=== PATIENT | female | born 1995 ===

== ENCOUNTER 2016-09-26 22:50 | Emergency (ER) | payer OTHER ==
[2016-09-26 22:56] VITALS: BMI 54.9
[2016-09-26 23:01] VITALS: BP 118/82; PULSE 91; RESP 18; TEMP 99.5; O2SAT 99
--- NOTE | 2016-09-27 00:04 | ED PDOC ---
Arrival/HPI - General Chief Complaint: Weakness/Neurological Deficit Time Seen by Provider: 09/26/16 23:19 Historian: Patient - History of Present Illness Narrative History of Present Illness (Text): 09/26/16 23:58 Patient with past medical history of anemia, asthma, hypothyroidism and palpitation reports having 3 episodes of feeling like she was going to pass out today, states that her symptoms are associated with feelings of agitation, burning sensation to her head, which causes her to hyperventilate. Patient states that she has had similar episodes intermittently for the past week. She adds that she recently saw her back hanger and snuff maker this past week and had bloodwork from both doctors which were completely normal, she states that she was told that she was not anemic, that her hemoglobin was normal, was told that her thyroid hormones are within normal limits, and was advised that she is not diabetic as well. Patient states that she has a follow-up appointment with the back hanger tomorrow and that her back hanger plans to put her on a Holter monitor. She further states that because she suffers from chronic migraines that she has been following up with a neurologist who ordered an outpatient MRI of her brain one month ago which was negative. She also adds that 3 days and today she has an appointment with her neurologist to get an EEG done. Reports (-) worsening of symptoms with movement of head. Otherwise: (+) decrease in appetite, (-) lightheadedness, (-) dizziness, (-) trauma, (-) acute headache, (-) tinnitus, (-) hearing loss, (-) chest pain, (-) dyspnea, (-) fever , (-) vomiting, (-) diarrhea, (-) syncope, (-) GI bleeding. Of note, patient states that she currently has a sore throat and recently had nasal congestion and runny nose. PMD Lavelle Cardio: Gopi Endo: Tacho Neuro: Catrachita Past Medical History - Provider Review Nursing Documentation Reviewed: Yes - Past History Past History: No Previous - Infectious Disease Hx of Infectious Diseases: None - Tetanus Immunization Tetanus Immunization: Unknown - Past Medical History Past Medical History: No Previous - Cardiac Hx Cardiac Disorders: No Hx Hypertension: No - Pulmonary Hx Asthma: Yes - Neurological Hx Neurological Disorder: No Hx Seizures: No - HEENT Hx HEENT Disorder: No - Renal Hx Renal Disorder: No - Endocrine/Metabolic Hx Hyperthyroidism: Yes - Hematological/Oncological Hx Anemia: Yes - Integumentary Hx Dermatological Disorder: No - Musculoskeletal/Rheumatological Hx Musculoskeletal Disorders: No - Gastrointestinal Hx Gastrointestinal Disorders: No - Genitourinary/Gynecological Hx Sexually Transmitted Diseases: No Other/Comment: POLYCYSTIC OVARY - Psychiatric Hx Depression: No Hx Post Traumatic Stress Disorder: No Hx Schizophrenia: No Hx Substance Use: Yes (CANNABIS) Other/Comment: ODD - Past Surgical History Past Surgical History: No Previous - Anesthesia Hx Anesthesia: No Hx Anesthesia Reactions: No Hx Malignant Hyperthermia: No - Suicidal Assessment Feels Threatened In Home Enviroment: No Family/Social History - Physician Review Nursing Documentation Reviewed: Yes Family/Social History: No Known Family HX Smoking Status: Light Smoker < 10 Cigarettes Daily Hx Alcohol Use: Yes Hx Substance Use: Yes (CANNABIS) Hx Substance Use Treatment: No Allergies/Home Meds Allergies/Adverse Reactions: Allergies No Known Allergies Allergy (Verified 02/20/16 10:51) Review of Systems - Review of Systems Constitutional: Normal. absent: Fatigue, Weight Change, Fevers ENT: Normal, Sore Throat, Sinus Congestion (for 1 week). absent: Hearing Changes, Tinnitus, TMJ Pain Respiratory: Normal. absent: SOB, Cough, Sputum, Wheezing Cardiovascular: Normal. absent: Chest Pain, Palpitations, Edema Gastrointestinal: Normal. absent: Abdominal Pain, Stool Changes, Constipation Musculoskeletal: Normal. absent: Arthralgias, Back Pain, Neck Pain Skin: Normal. absent: Rash, Pruritis, Skin Lesions Neurological: Normal, Headache (migraine headaches). absent: Dizziness, Focal Weakness Endocrine: Normal. absent: Diaphoresis, Polyuria, Polydipsia Physical Exam - Physical Exam Narrative Physical Exam (Text): 09/27/16 00:05 GENERAL APPEARANCE: Patient is awake, alert, oriented x 3, in no acute distress. SKIN: Warm, dry; (-) cyanosis. HEAD: (-) scalp swelling or tenderness. EYES: (-) conjunctival pallor. ENMT: TMs normal. Mucous membranes moist. Pharynx : (+) erythema, (+) exudate. Airway patent. NECK: (-) tenderness, (-) stiffness, (-) lymphadenopathy. Carotids: (-) bruit. CHEST AND RESPIRATORY: (-) rales, (-) rhonchi, (-) wheezes; breath sounds equal bilaterally. HEART AND CARDIOVASCULAR: (-) irregularity; (-) murmur, (-) gallop. ABDOMEN AND GI: Soft; (-) distention, (-) tenderness, (-) rebound, (-) guarding , (-) palpable masses, (-) flank tenderness. EXTREMITIES: (-) deformity; (-) edema. Distal pulses: present. NEURO AND PSYCH: Mental status as above. information lead: (-) nystagmus; Pupils equal & reactive, EOMI, (-) facial asymmetry; (-) dysarthria; tongue and uvula midline. Strength and DTRs symmetric. Gait: normal. Vital Signs Temp Pulse Resp BP Pulse Ox 09/26/16 22:55 99.5 F 91 H 18 118/82 99 Finger Stick Blood Glucose: 87 Medical Decision Making ED Course and Treatment: 09/27/16 00:05 20 yo F past medical history of asthma, anemia, hypothyroidism and migraine headaches presents with 3 episodes of sensation of nearly passing out today, has had similar episodes for the past week. Physical exam is normal otherwise. Symptoms may be related to hypoglycemia since the patient reports a history of decrease in appetite. However, patient has had an extensive workup with her back hanger, snuff maker and neurologist which so far are yielding normal testing. EKG: SR at 83 bpm, (-) acute ST changes, as read by PA. Urine hcg (-) FS 87 Considering that the patient has currently undergoing extensive workup by her back hanger, snuff maker and neurologist, patient was advised that she needs to follow up with her doctors for further evaluation. Patient instructed on the importance of eating on time and with a balanced diet. Patient states she fully agrees with and understands discharge instructions. States that she agrees with the plan and disposition. Verbalized and repeated discharge instructions and plan. I have given the patient opportunity to ask any additional questions. Follow up with primary care physician, back hanger, snuff maker and neurologist in 2 days without fail. Return to the emergency room at any time for any new or worsening symptoms. - PA / HEALTH UNIT CLERK / Resident Statement /DO has reviewed & agrees with the documentation as recorded. Disposition/Present on Arrival - Present on Arrival Any Indicators Present on Arrival: No History of DVT/PE: No History of Uncontrolled Diabetes: No Urinary Catheter: No History of Decub. Ulcer: No History Surgical Site Infection Following: None - Disposition Have Diagnosis and Disposition been Completed?: Yes Diagnosis: Near syncope, Pharyngitis Disposition: HOME/ ROUTINE Disposition Time: 00:09 Patient Plan: Discharge Condition: STABLE Discharge Instructions (ExitCare): Pharyngitis (ED), Near Syncope (ED) Print Language: CYPRIOT Additional Instructions: Thank you for letting us take care of you today. You were treated for near- syncope, pharyngitis. The emergency medical care you received today was directed at your acute symptoms. If you were prescribed any medication, please fill it and take as directed. It may take several days for your symptoms to resolve. Return to the Emergency Department if your symptoms worsen, do not improve, or if you have any other problems. Please contact your doctors in 2 days for re-evaluation and follow up. Bring any paperwork you were given at discharge with you along with any medications you are taking to your follow up visit. Our treatment cannot replace ongoing medical care by a primary care provider (PCP) outside of the emergency department. Thank you for allowing the [facility] team to be part of your care today. Prescriptions: Penicillin VK [Pen-Vee K] 500 mg PO QID #40 tab Forms: WORK NOTE, SCHOOL NOTE
--- NOTE | 2016-09-27 12:53 | CARD ---
APPROVED REPORT EKG Measurement Heart [id number] [place] [id number] [id number] <Conclusion> Sinus rhythm with marked sinus arrhythmia Otherwise normal ECG
== END 2016-09-27 00:40 | disposition home or self-care (01) ==
LOC: ED 22:50
DX: R55 Syncope and collapse (principal); J02.9 Acute pharyngitis, unspecified; Z72.0 Tobacco use

== ENCOUNTER 2016-11-22 14:30 | Emergency (ER) | payer OTHER ==
[2016-11-22 14:30] VITALS: BMI 54.9
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
[2016-11-22 14:59] VITALS: RESP 18
[2016-11-22 15:21] LABS: ADD MANUAL DIFF? NO
[2016-11-22 15:38] LABS: BASO # 0.04 K/mm3 (0.0-2.0); BASO % 0.4 % (0.0-3.0); EOS # 0.2 (0.0-0.7); EOS % 1.8 % (1.5-5.0); GRAN # 7.82 (1.4-6.5); GRAN % 69.1 % (50.0-68.0); HEMATOCRIT 34.8 % (36.0-48.0); LYMPH # 2.6 (1.2-3.4); MEAN CELL VOLUME 82.3 fL (80.0-105.0); MEAN CORPUSCULAR HEMOGLOBIN 26.5 pg (25.0-35.0); MEAN CORPUSCULAR HGB CONC 32.2 g/dl (31.0-37.0); MEAN PLATELET VOLUME 10.1 fl (7.0-11.0); MONO # 0.7 (0.1-0.6); MONO % 5.7 % (1.0-6.0); PLATELET COUNT 353 10^3/uL (120.0-450.0); RED CELL DISTRIBUTION WIDTH 14.1 % (11.5-14.5); WHITE BLOOD COUNT 11.3 10^3/ul (4.5-11.0)
[2016-11-22 15:41] LABS: ALB/GLOB RATIO 1.1 (1.1-1.8); ALKALINE PHOSPHATASE 80 U/L (38-133); ALT/SGPT 27 U/L (7-56); AST/SGOT 23 U/L (15-39); BILIRUBIN,TOTAL 0.5 mg/dL (0.2-1.3); BLOOD UREA NITROGEN 13 mg/dL (7-21); CALCIUM 9.5 mg/dL (8.4-10.5); CARBON DIOXIDE 26 mmol/L (21-33); CHLORIDE 103 mmol/L (98-107); GFR AFRICAN-AMERICAN > 60; GLUCOSE,RANDOM 99 mg/dL (70-110); POTASSIUM 3.8 mmol/L (3.6-5.0); SODIUM 137 mmol/L (132-148); TOTAL PROTEIN 7.7 g/dL (5.8-8.3)
[2016-11-22 15:54] LABS: URINE BILIRUBIN NEGATIVE (NEGATIVE); URINE BLOOD NEGATIVE (NEGATIVE); URINE GLUCOSE (UA) NEGATIVE (NEGATIVE); URINE KETONE NEGATIVE (NEGATIVE); URINE LEUKOCYTE ESTERASE NEGATIVE Leu/uL (NEGATIVE); URINE PROTEIN NEGATIVE mg/dL (<30 mg/dL); URINE UROBILINOGEN 0.2 E.U./dL (<1 E.U./dL)
[2016-11-22 15:57] LABS: URINE APPEARANCE CLEAR (CLEAR); URINE COLOR YELLOW (YELLOW)
--- NOTE | 2016-11-22 16:21 | RAD ---
HISTORY: medical clearance COMPARISON: 08/27/2014 FINDINGS: LUNGS: The lungs are well inflated and clear. PLEURA: No significant pleural effusion identified, no pneumothorax apparent. CARDIOVASCULAR: Normal. OSSEOUS STRUCTURES: No significant abnormalities. VISUALIZED UPPER ABDOMEN: Normal. OTHER FINDINGS: None. IMPRESSION: No active pulmonary disease.
[2016-11-22 16:34] VITALS: BP 120/66; PULSE 78; TEMP 98.1; O2SAT 99
--- NOTE | 2016-11-24 00:04 | CARD ---
APPROVED REPORT EKG Measurement Heart [id number] VA [id number] <Conclusion> Normal sinus rhythm with sinus arrhythmia Normal ECG
== END 2016-11-22 16:36 | disposition home or self-care (01) ==
LOC: ED 14:30
DX: F31.9 Bipolar disorder, unspecified (principal); F12.10 Cannabis abuse, uncomplicated

== ENCOUNTER 2016-12-02 09:18 | Emergency (ER) | payer OTHER ==
[2016-12-02 09:28] VITALS: BMI 52.7
--- NOTE | 2016-12-02 09:36 | ED PDOC ---
Arrival/HPI - General Chief Complaint: Back Pain Time Seen by Provider: 12/02/16 09:29 Historian: Patient - History of Present Illness Narrative History of Present Illness (Text): 12/02/16 09:29 21 y/o female, pmh including chronic sciatica, nkda, c/o lt. lower back pain radiating to the left thigh x 1 day with no fall or trauma. Aching pain, aggravated by movement, started after long day walking, no numbness or tingling , no urinary symptoms, no urinary or bowel incontinence or retention, no other medical or psychological complaints. Past Medical History - Provider Review Nursing Documentation Reviewed: Yes - Past History Past History: No Previous - Infectious Disease Hx of Infectious Diseases: None - Tetanus Immunization Tetanus Immunization: Unknown - Past Medical History Past Medical History: No Previous - Cardiac Hx Cardiac Disorders: No Hx Hypertension: No - Pulmonary Hx Asthma: Yes - Neurological Hx Neurological Disorder: No Hx Seizures: No - HEENT Hx HEENT Disorder: No - Renal Hx Renal Disorder: No - Endocrine/Metabolic Hx Hyperthyroidism: Yes - Hematological/Oncological Hx Anemia: Yes - Integumentary Hx Dermatological Disorder: No - Musculoskeletal/Rheumatological Hx Arthritis: Yes - Gastrointestinal Hx Gastrointestinal Disorders: No - Genitourinary/Gynecological Hx Sexually Transmitted Diseases: No Other/Comment: POLYCYSTIC OVARY - Psychiatric Hx Depression: No Hx Post Traumatic Stress Disorder: No Hx Schizophrenia: No Hx Substance Use: Yes (CANNABIS) Other/Comment: ODD - Past Surgical History Past Surgical History: No Previous - Anesthesia Hx Anesthesia: No Hx Anesthesia Reactions: No Hx Malignant Hyperthermia: No - Suicidal Assessment Feels Threatened In Home Enviroment: No Family/Social History - Physician Review Nursing Documentation Reviewed: Yes Family/Social History: Unknown Family HX Smoking Status: Light Smoker < 10 Cigarettes Daily Hx Alcohol Use: Yes Frequency of alcohol use: Socially Hx Substance Use: Yes (CANNABIS) Hx Substance Use Treatment: No Allergies/Home Meds Allergies/Adverse Reactions: Allergies No Known Allergies Allergy (Verified 12/02/16 09:28) Home Medications: Home Meds Medication Instructions Recorded Confirmed Albuterol HFA [Ventolin HFA 90 2 puff NEB Q4 PRN 12/02/16 12/02/16 mcg/actuation (8 g)] Omeprazole [Omeprazole] 40 mg PO DAILY 12/02/16 12/02/16 Review of Systems - Review of Systems Constitutional: absent: Fatigue, Fevers Eyes: absent: Vision Changes ENT: absent: Hearing Changes Respiratory: absent: SOB, Cough Cardiovascular: absent: Chest Pain Gastrointestinal: absent: Abdominal Pain, Diarrhea, Nausea, Vomiting Musculoskeletal: Back Pain, Myalgias. absent: Arthralgias, Neck Pain, Joint Swelling Neurological: absent: Headache, Dizziness, Focal Weakness, Gait Changes Psychiatric: absent: Anxiety, Depression, Suicidal Ideation Physical Exam Vital Signs Reviewed: Yes Vital Signs Temp Pulse Resp BP Pulse Ox 12/02/16 09:18 98.7 F 79 18 123/62 100 Temperature: Afebrile Blood Pressure: Normal Pulse: Regular Respiratory Rate: Normal Appearance: Positive for: Well-Appearing, Non-Toxic Pain Distress: Severe Mental Status: Positive for: Alert and Oriented X 3 - Systems Exam Head: Present: Atraumatic, Normocephalic Pupils: Present: PERRL Extroacular Muscles: Present: EOMI Conjunctiva: Present: Normal Mouth: Present: Moist Mucous Membranes Neck: Present: Normal Range of Motion Respiratory/Chest: Present: Clear to Auscultation, Good Air Exchange. No: Respiratory Distress, Accessory Muscle Use Cardiovascular: Present: Regular Rate and Rhythm, Normal S1, S2. No: Murmurs Abdomen: Present: Normal Bowel Sounds. No: Tenderness, Distention, Peritoneal Signs Back: Present: Normal Inspection, Other (LS spine: +ttp and spasm on the lt. paraspnal muscle region, no midline tenderness or step off, no rash, no cva tenderness, FROM without limitation, sensation intact, motor 5/5. ). No: CVA Tenderness, Midline Tenderness, Decubitus Ulcer Upper Extremity: Present: Normal Inspection. No: Cyanosis, Edema Lower Extremity: Present: Normal Inspection. No: Edema Neurological: Present: GCS=15, Speech Normal, Motor Func Grossly Intact, Gait Normal, Memory Normal Skin: Present: Warm, Dry, Normal Color. No: Rashes Psychiatric: Present: Alert, Oriented x 3, Normal Insight, Normal Concentration Medical Decision Making ED Course and Treatment: 12/02/16 09:42 -Urine hcg: Negative -Toradol/percocet/flexeril/lidoderm -I checked [facility] that she only had 1 prescription of tramadol in 05/24/2016 in the past 365 days, I will it business systems analyst her percocet. -Discharge home with mobic, flexeril, percocet for severe pain, lidoderm patch, heat compression, bed rest, follow up with your own pmd within 2 days, return to the ER for any new or worsening signs or symptoms. - Medication Orders Current Medication Orders: Discontinued Medications Cyclobenzaprine HCl (Flexeril) 10 mg PO STAT STA Stop: 12/02/16 09:38 Last Admin: 12/02/16 10:13 Dose: 10 mg Ketorolac Tromethamine (Toradol) 60 mg IM STAT STA Stop: 12/02/16 09:38 Last Admin: 12/02/16 10:16 Dose: 60 mg Lidocaine (Lidoderm) 1 ea TD DAILY MIKE Last Admin: 12/02/16 10:16 Dose: 1 ea Lidocaine (Lidoderm) 1 ea TD STAT STA Stop: 12/02/16 10:32 Oxycodone/Acetaminophen (Percocet 5/325 Mg Tab) 1 tab PO STAT STA Stop: 12/02/16 09:38 Last Admin: 12/02/16 10:14 Dose: 1 tab - PA / LOCAL SALES ASSOCIATE / Resident Statement / has reviewed & agrees with the documentation as recorded. Disposition/Present on Arrival - Present on Arrival Any Indicators Present on Arrival: No History of DVT/PE: No History of Uncontrolled Diabetes: No Urinary Catheter: No History of Decub. Ulcer: No History Surgical Site Infection Following: None - Disposition Have Diagnosis and Disposition been Completed?: Yes Diagnosis: Sciatica, Back spasm Disposition: HOME/ ROUTINE Disposition Time: 09:44 Patient Plan: Discharge Patient Problems: Current Active Problems Problem Status Onset Sciatica Acute Back spasm Acute Condition: IMPROVED Additional Instructions: Discharge home with mobic, flexeril, percocet for severe pain, lidoderm patch, heat compression, bed rest, follow up with your own pmd within 2 days, return to the ER for any new or worsening signs or symptoms. Prescriptions: Cyclobenzaprine [Cyclobenzaprine HCl] 10 mg PO TID PRN #21 tab PRN Reason: Other Lidocaine 5% [Lidoderm] 1 patch TOP DAILY PRN #14 patch PRN Reason: Other Meloxicam [Mobic] 15 mg PO DAILY PRN #14 tablet PRN Reason: Other oxyCODONE/Acetaminophen [Percocet 5/325 mg Tab] 1 ea PO QID PRN #10 tab PRN Reason: Other Referrals: [facility] [place] - Follow up with primary Forms: WORK NOTE
[2016-12-02] MEDS ORDERED: Oxycodone/Acetaminophen 5/325 mg Tab PO STA (09:37)
[2016-12-02] MEDS ORDERED: Lidocaine 5% Patch TD SCH (10:00)
[2016-12-02] MEDS ORDERED: Lidocaine 5% Patch TD STA (10:31)
[2016-12-02 10:42] VITALS: BP 124/71; PULSE 75; RESP 20; TEMP 98; O2SAT 99
== END 2016-12-02 11:07 | disposition home or self-care (01) ==
LOC: ED 09:18
DX: M54.30 Sciatica, unspecified side (principal); M62.830 Muscle spasm of back
CPT/HCPCS: 96372; 99283; J1885

== ENCOUNTER 2016-12-08 18:03 | Emergency (ER) | payer OTHER ==
[2016-12-08 18:18] VITALS: RESP 20; O2SAT 99; BMI 53.7
--- NOTE | 2016-12-08 18:40 | ED PDOC ---
Arrival/HPI - General Chief Complaint: Shortness Of Breath Time Seen by Provider: 12/08/16 18:05 Historian: Patient - History of Present Illness Narrative History of Present Illness (Text): 12/08/16 18:32 This 21 yo female with pmh Bipolar disorder, anxiety, adhd, asthma, presents to this ED c/o intermittent sob, chest pressure x 3 months. Patient stated she has gone multiple times to different EDs, and doctor office visits for same, but her doctors don't seem to ping point the exact cause of her symptoms. Patient stated when she gets theses symptoms, she feels dizzy. Patient denies other complains. Patient denies fever, wheezing, cough, abdominal pain, urinary symptoms, leg swelling, calf pain, recent travel, sick contact, rash, or abnormal gait. Denies SI. HI, paranoia, or hallucination. Patient presents with rapid speech, in no acute respiratory distress. PERC negative for PE Time/Duration: Other (3 months) Context: Home Past Medical History - Provider Review Nursing Documentation Reviewed: Yes - Past History Past History: No Previous - Infectious Disease Hx of Infectious Diseases: None - Tetanus Immunization Tetanus Immunization: Unknown - Past Medical History Past Medical History: No Previous - Cardiac Hx Cardiac Disorders: No Hx Hypertension: No - Pulmonary Hx Asthma: Yes - Neurological Hx Neurological Disorder: No - HEENT Hx HEENT Disorder: No - Renal Hx Renal Disorder: No - Endocrine/Metabolic Hx Hyperthyroidism: Yes - Hematological/Oncological Hx Anemia: Yes - Integumentary Hx Dermatological Disorder: No - Musculoskeletal/Rheumatological Hx Arthritis: Yes - Gastrointestinal Hx Gastrointestinal Disorders: No - Genitourinary/Gynecological Other/Comment: POLYCYSTIC OVARY - Psychiatric Hx Substance Use: Yes (CANNABIS) Other/Comment: ODD - Past Surgical History Past Surgical History: No Previous - Anesthesia Hx Anesthesia: No Hx Anesthesia Reactions: No Hx Malignant Hyperthermia: No - Suicidal Assessment Feels Threatened In Home Enviroment: No Family/Social History - Physician Review Nursing Documentation Reviewed: Yes Family/Social History: No Known Family HX Smoking Status: Light Smoker < 10 Cigarettes Daily Hx Alcohol Use: Yes Frequency of alcohol use: Socially Hx Substance Use: Yes (CANNABIS) Hx Substance Use Treatment: No Allergies/Home Meds Allergies/Adverse Reactions: Allergies No Known Allergies Allergy (Verified 12/02/16 09:28) Home Medications: Home Meds Medication Instructions Recorded Confirmed Albuterol HFA [Ventolin HFA 90 2 puff NEB Q4 PRN 12/02/16 12/08/16 mcg/actuation (8 g)] Review of Systems - Review of Systems Constitutional: Normal. absent: Fatigue, Weight Change, Fevers Eyes: Normal ENT: Normal Respiratory: SOB. absent: Cough, Sputum, Wheezing Cardiovascular: Chest Pain (pressure like). absent: Palpitations, Edema, Calf Pain, LUDWIG, Orthopnea, Syncope Gastrointestinal: Normal. absent: Abdominal Pain, Nausea, Vomiting Genitourinary Female: Normal Musculoskeletal: Normal Skin: Normal. absent: Rash, Pruritis Neurological: Dizziness. absent: Headache, Focal Weakness, Gait Changes, Speech Changes, Facial Droop, Disequilibrium, Seizure Endocrine: Normal Hemo/Lymphatic: Normal Psychiatric: Normal. absent: Anxiety, Depression, Suicidal Ideation Physical Exam Vital Signs Pulse Resp BP Pulse Ox 12/08/16 19:19 72 20 146/83 99 12/08/16 18:03 78 20 140/70 99 Temperature: Afebrile Blood Pressure: Normal Pulse: Regular Respiratory Rate: Normal Appearance: Positive for: Well-Appearing, Non-Toxic, Comfortable Pain Distress: None Mental Status: Positive for: Alert and Oriented X 3 - Systems Exam Head: Present: Atraumatic, Normocephalic Pupils: Present: PERRL Extroacular Muscles: Present: EOMI Conjunctiva: Present: Normal Mouth: Present: Moist Mucous Membranes Pharnyx: Present: Normal. No: ERYTHEMA, EXUDATE, TONSILS ENLARGED Neck: Present: Normal Range of Motion, Trachea Midline. No: Meningeal Signs, MIDLINE TENDERNESS, Paraspinal Tenderness Respiratory/Chest: Present: Clear to Auscultation, Good Air Exchange. No: Respiratory Distress, Accessory Muscle Use, Wheezes, Decreased Breath Sounds, Rales, Retracting, Rhonchi, Tachypneic Cardiovascular: Present: Regular Rate and Rhythm, Normal S1, S2. No: Murmurs Abdomen: Present: Normal Bowel Sounds. No: Tenderness, Distention, Peritoneal Signs Back: Present: Normal Inspection Upper Extremity: Present: Normal Inspection. No: Cyanosis, Edema Lower Extremity: Present: Normal Inspection. No: Edema Neurological: Present: GCS=15, CN II-XII Intact, Speech Normal, Motor Func Grossly Intact, Normal Sensory Function, Normal Cerebellar Funct, Gait Normal, Memory Normal Skin: Present: Warm, Dry, Normal Color. No: Rashes Psychiatric: Present: Alert, Oriented x 3, Other (rapid speech). No: Suicidal Ideation, Homicidal Ideation Medical Decision Making ED Course and Treatment: 12/08/16 19:28 Re-evaluation. Patient feels better. Discussed results and plan with patient who expresses understanding. All questions answered and there is agreement with the plan to discharge home with instructions. Patient stable for discharge. Return if symptoms persist or worsen Re-evaluation Time: 19:28 Reassessment Condition: Re-examined, Improved - RAD Interpretation Narrative RAD Interpretations (Text): 12/08/16 19:28 Chest x-rays: NAD Radiology Orders: 12/08/16 18:33 CHEST PORTABLE [RAD] Stat - EKG Interpretation Interpreted by ED Physician: Yes (NSR at 70 bpm with sinus arrythmias. No ST changes) Type: 12 lead EKG Comparison: No previous EKG avail. Disposition/Present on Arrival - Present on Arrival Any Indicators Present on Arrival: No History of DVT/PE: No History of Uncontrolled Diabetes: No Urinary Catheter: No History of Decub. Ulcer: No History Surgical Site Infection Following: None - Disposition Have Diagnosis and Disposition been Completed?: Yes Diagnosis: SOB (shortness of breath), Chest pain, non-cardiac, Anxiety Disposition: HOME/ ROUTINE Disposition Time: 19:29 Patient Plan: Discharge Patient Problems: Current Active Problems Problem Status Onset Anxiety Acute Chest pain, non-cardiac Acute SOB (shortness of breath) Acute Condition: GOOD Discharge Instructions (ExitCare): Chest Pain (ED) Additional Instructions: Call private doctor for follow up visit in 1-2 days. Return to emergency if symptoms returns. Make sure to see your supervisor roving and cardiaologist as recommended by your doctor. Do not fotgrt to contact your Psychiatrist Referrals: Liat Cortes MD [Family Provider] - Follow up with primary [facility] [Outside] - Follow up with primary [facility] [Outside] - Follow up with primary
[2016-12-08 19:22] VITALS: BP 146/83; PULSE 72
--- NOTE | 2016-12-09 08:55 | RAD ---
HISTORY: sob COMPARISON: 11/22/2016 FINDINGS: LUNGS: No active pulmonary disease. PLEURA: No significant pleural effusion identified, no pneumothorax apparent. CARDIOVASCULAR: Normal. OSSEOUS STRUCTURES: No significant abnormalities. VISUALIZED UPPER ABDOMEN: Normal. OTHER FINDINGS: None. IMPRESSION: No active disease.
--- NOTE | 2016-12-09 09:48 | CARD ---
APPROVED REPORT EKG Measurement Heart [id number] <Conclusion> Normal sinus rhythm with sinus arrhythmia Small inferior Q waves Normal ECG No change
== END 2016-12-08 19:31 | disposition home or self-care (01) ==
LOC: ED 18:03
DX: R06.02 Shortness of breath (principal); R07.9 Chest pain, unspecified; F41.9 Anxiety disorder, unspecified

== ENCOUNTER 2016-12-18 15:54 | Emergency (ER) | payer OTHER ==
[2016-12-18 16:48] VITALS: BMI 52.8
[2016-12-18 16:56] VITALS: RESP 18; TEMP 98.4
[2016-12-18 17:43] VITALS: BP 122/83; PULSE 80; O2SAT 99
--- NOTE | 2016-12-18 17:54 | ED PDOC ---
Arrival/HPI - General Chief Complaint: Abnormal Skin Integrity Time Seen by Provider: 12/18/16 17:05 Historian: Patient - History of Present Illness Narrative History of Present Illness (Text): 12/18/16 17:58 A 21 year old female presents to the emergency department complaining of an itchy rash to chest that developed two 2 days ago. Patient reports she was at a park a couple of days ago and got bug bites, which haven't gone away. Patient reports taking Benadryl with minimal relief. Patient denies any discharge, fever , shortness of breath or any other complaints at this time. Time/Duration: Other (2 days) Symptom Onset: Sudden Symptom Course: Unchanged Modifying Factors (Text): Benadryl with minimal relief Associated Symptoms (Text): none Past Medical History - Provider Review Nursing Documentation Reviewed: Yes - Past History Past History: No Previous - Infectious Disease Hx of Infectious Diseases: None - Tetanus Immunization Tetanus Immunization: Unknown - Past Medical History Past Medical History: No Previous - Cardiac Hx Cardiac Disorders: No Hx Hypertension: No - Pulmonary Hx Asthma: Yes - Neurological Hx Neurological Disorder: No - HEENT Hx HEENT Disorder: No - Renal Hx Renal Disorder: No - Endocrine/Metabolic Hx Hyperthyroidism: Yes - Hematological/Oncological Hx Anemia: Yes - Integumentary Hx Dermatological Disorder: No - Musculoskeletal/Rheumatological Hx Arthritis: Yes - Gastrointestinal Hx Gastrointestinal Disorders: No - Genitourinary/Gynecological Other/Comment: POLYCYSTIC OVARY - Psychiatric Hx Psychophysiologic Disorder: Yes Hx Anxiety: Yes Hx Substance Use: Yes (CANNABIS) Other/Comment: ODD - Past Surgical History Past Surgical History: No Previous - Anesthesia Hx Anesthesia: No Hx Anesthesia Reactions: No Hx Malignant Hyperthermia: No - Suicidal Assessment Feels Threatened In Home Enviroment: No Family/Social History - Physician Review Nursing Documentation Reviewed: Yes Family/Social History: No Known Family HX Smoking Status: Light Smoker < 10 Cigarettes Daily Hx Alcohol Use: Yes Hx Substance Use: Yes (CANNABIS) Hx Substance Use Treatment: No Allergies/Home Meds Allergies/Adverse Reactions: Allergies No Known Allergies Allergy (Verified 12/18/16 16:56) Home Medications: Home Meds Medication Instructions Recorded Confirmed Albuterol HFA [Ventolin HFA 90 2 puff NEB Q4 PRN 12/02/16 12/18/16 mcg/actuation (8 g)] Omeprazole 40 mg PO DAILY 12/18/16 12/18/16 Review of Systems - Physician Review All systems were reviewed & negative as marked: Yes - Review of Systems Constitutional: absent: Fevers Respiratory: absent: SOB Genitourinary Female: absent: Vaginal Discharge Skin: Rash Physical Exam Vital Signs Reviewed: Yes Vital Signs Temp Pulse Resp BP Pulse Ox 12/18/16 17:42 80 18 122/83 99 12/18/16 16:48 98.4 F 84 18 120/81 100 Temperature: Afebrile Blood Pressure: Normal Pulse: Regular Respiratory Rate: Normal Appearance: Positive for: Non-Toxic, Comfortable, Other (morbidly obese) Pain Distress: None Mental Status: Positive for: Alert and Oriented X 3 - Systems Exam Head: Present: Atraumatic, Normocephalic Pupils: Present: PERRL Extroacular Muscles: Present: EOMI Conjunctiva: Present: Normal Mouth: Present: Moist Mucous Membranes Pharnyx: Present: Normal. No: ERYTHEMA, EXUDATE, TONSILS ENLARGED Neck: Present: Normal Range of Motion Respiratory/Chest: Present: Clear to Auscultation, Good Air Exchange. No: Respiratory Distress, Accessory Muscle Use, Other (stridor) Cardiovascular: Present: Regular Rate and Rhythm, Normal S1, S2. No: Murmurs Abdomen: Present: Normal Bowel Sounds. No: Tenderness, Distention, Peritoneal Signs Back: Present: Normal Inspection Upper Extremity: Present: Normal Inspection. No: Cyanosis, Edema Lower Extremity: Present: Normal Inspection. No: Edema Neurological: Present: GCS=15, CN II-XII Intact, Speech Normal Skin: Present: Warm, Dry, Normal Color, Other (maculopapular rash on chest; no erythema). No: Rashes Psychiatric: Present: Alert, Oriented x 3, Normal Insight, Normal Concentration Medical Decision Making ED Course and Treatment: 12/18/16 17:51 Impression: A 21 year old female with an itchy rash. Plan: -- Decadron -- Reassess and disposition Prior Visits: Notes and results from previous visits were reviewed. Patient last reported to the emergency department on 12/08/16 for evaluation of shortness of breath and chest pressure. Progress Notes: - Medication Orders Current Medication Orders: Discontinued Medications Dexamethasone (Decadron Inj) 10 mg IM STAT STA Stop: 12/18/16 17:06 Last Admin: 12/18/16 17:33 Dose: 10 mg - Scribe Statement The provider has reviewed the documentation as recorded by the Nikki Gonzalez Provider Nikki Attestation: All medical record entries made by the Nikki were at my direction and personally dictated by me. I have reviewed the chart and agree that the record accurately reflects my personal performance of the history, physical exam, medical decision making, and the department course for this patient. I have also personally directed, reviewed, and agree with the discharge instructions and disposition. Disposition/Present on Arrival - Present on Arrival Any Indicators Present on Arrival: No History of DVT/PE: No History of Uncontrolled Diabetes: No Urinary Catheter: No History of Decub. Ulcer: No History Surgical Site Infection Following: None - Disposition Have Diagnosis and Disposition been Completed?: Yes Diagnosis: Allergic reaction Disposition: HOME/ ROUTINE Disposition Time: 17:05 Condition: GOOD Discharge Instructions (ExitCare): General Allergic Reaction (ED) Additional Instructions: Thank you for letting us take care of you today. Your provider was Dr. Morrow. You were treated for an allergic reaction. The emergency medical care you received today was directed at your acute symptoms. If you were prescribed any medication, please fill it and take as directed. It may take several days for your symptoms to resolve. Return to the Emergency Department if your symptoms worsen, do not improve, or if you have any other problems. Please contact your doctor or call one of the physicians/clinics you have been referred to that are listed on the Patient Visit Information form that is included in your discharge packet. Bring any paperwork you were given at discharge with you along with any medications you are taking to your follow up visit. Our treatment cannot replace ongoing medical care by a primary care provider (PCP) outside of the emergency department. [facility] your care today. Follow up with your doctor in 3-4 days for re-evaluation. Prescriptions: predniSONE [Prednisone] 40 mg PO DAILY #10 tab Referrals: Audrey Urbina, [Non-Staff] - Follow up with primary
== END 2016-12-18 17:43 | disposition home or self-care (01) ==
LOC: ED 15:54
DX: T78.49XA Other allergy, initial encounter (principal); X58.XXXA Exposure to other specified factors, initial encounter
CPT/HCPCS: 96372; 99284; J1100

== ENCOUNTER 2017-02-18 06:12 | Observation (INO) | payer OTHER ==
[2017-02-18] MEDS ORDERED: Sodium Chloride 0.9% 1,000 ML IV STA (07:34)
[2017-02-18] MEDS ORDERED: Morphine 2 mg/ml ISec IVP STA ×2 (07:34→08:33)
--- NOTE | 2017-02-18 07:39 | ED PDOC ---
Arrival/HPI - General Chief Complaint: Abdominal Pain Time Seen by Provider: 02/18/17 07:21 Historian: Patient - History of Present Illness Narrative History of Present Illness (Text): 02/18/17 07:30 21 year old female, whose past medical history includes bipolar disorder, anxiety, ADHD, and asthma, presents to the emergency department complaining of acute epigastric pain that began at 2:00AM. Patient states the pain is constant and is associated with nausea. She reports she arrived at home at 5:00AM and ate "a pie with milk", pain became more severe with persistent nausea and vomiting. Reports currently having menses although denies lower abdominal pain initially. Denies dysuria or frequency. Reports several episodes of diarrhea. Denies bloody urine or stool. Denies prior abdominal surgeries. No fever and chills. No rash. Time/Duration: Other (5 hours ago) Symptom Onset: Sudden Symptom Course: Unchanged Activities at Onset: Light Context: Home Past Medical History - Provider Review Nursing Documentation Reviewed: Yes - Past History Past History: No Previous - Infectious Disease Hx of Infectious Diseases: None - Tetanus Immunization Tetanus Immunization: Unknown - Reproductive Menopause: No - Past Medical History Past Medical History: No Previous - Cardiac Hx Cardiac Disorders: No Hx Hypertension: No - Pulmonary Hx Asthma: Yes - Neurological Hx Neurological Disorder: No - HEENT Hx HEENT Disorder: No - Renal Hx Renal Disorder: No - Endocrine/Metabolic Hx Hyperthyroidism: Yes - Hematological/Oncological Hx Anemia: Yes - Integumentary Hx Dermatological Disorder: No - Musculoskeletal/Rheumatological Hx Arthritis: Yes - Gastrointestinal Hx Gastrointestinal Disorders: No - Genitourinary/Gynecological Other/Comment: POLYCYSTIC OVARY - Psychiatric Hx Psychophysiologic Disorder: Yes Hx Anxiety: Yes Hx Substance Use: Yes (CANNABIS) Other/Comment: ODD - Past Surgical History Past Surgical History: No Previous - Anesthesia Hx Anesthesia: No Hx Anesthesia Reactions: No Hx Malignant Hyperthermia: No - Suicidal Assessment Feels Threatened In Home Enviroment: No Family/Social History - Physician Review Nursing Documentation Reviewed: Yes Family/Social History: No Known Family HX Smoking Status: Light Smoker < 10 Cigarettes Daily Hx Alcohol Use: Yes Hx Substance Use: Yes (CANNABIS) Hx Substance Use Treatment: No Allergies/Home Meds Allergies/Adverse Reactions: Allergies No Known Allergies Allergy (Verified 12/18/16 16:56) Home Medications: Home Meds Medication Instructions Recorded Confirmed No Known Home Med 02/18/17 02/18/17 Review of Systems - Review of Systems Constitutional: absent: Fatigue, Fevers Eyes: absent: Vision Changes Respiratory: absent: SOB Cardiovascular: absent: Chest Pain, Edema, LUDWIG Gastrointestinal: Abdominal Pain (Epigastric pain), Diarrhea, Nausea. absent: Vomiting Genitourinary Female: Other. absent: Dysuria, Frequency, Vaginal Discharge Musculoskeletal: Back Pain. absent: Neck Pain Skin: absent: Rash Neurological: absent: Headache, Dizziness, Focal Weakness Hemo/Lymphatic: absent: Easy Bleeding Psychiatric: absent: Depression, Suicidal Ideation Physical Exam - Physical Exam Narrative Physical Exam (Text): Head: Atraumatic. Normocephalic. Eyes: PERRL. EOMI. Conjunctivae are not pale. Sclera anicteric. ENT: Mucous membranes are moist and intact. Oropharynx is clear and symmetric. Neck: Supple. Full ROM. No JVD. No lymphadenopathy. Cardiovascular: Regular rate. Regular rhythm. No murmurs, rubs, or gallops. Distal pulses are 2+ and symmetric. Pulmonary/Chest: No evidence of respiratory distress. Clear to auscultation bilaterally. No wheezing, rales or rhonchi. Abdominal: Obese, Soft and non-distended. Moderate Epigastric tenderness with palpation. No rebound, guarding, or rigidity. Negative for Shen Sign. No organomegaly. Good bowel sounds. No lower abdominal tenderness to palpation. Back: No CVA tenderness. Extremities: No edema. No cyanosis. No clubbing. Full range of motion in all extremities. No calf tenderness. Skin: Skin is warm and dry. No petechiae. No purpura. No jaundice. Neurological: Alert, awake, and oriented. Motor and sensory exam intact. Psychiatric: Good eye contact. Denies depression currently. Vital Signs Reviewed: Yes Vital Signs Temp Pulse Resp BP Pulse Ox 02/18/17 13:07 86 16 144/71 98 02/18/17 07:19 85 18 118/52 L 98 02/18/17 06:24 98.7 F 82 19 133/62 99 Temperature: Afebrile Blood Pressure: Normal Pulse: Regular Respiratory Rate: Normal Appearance: Positive for: Non-Toxic, Uncomfortable Pain Distress: Moderate Mental Status: Positive for: Alert and Oriented X 3 Medical Decision Making ED Course and Treatment: 02/18/17 07:30 Impression: 21 year old female presents complaining of severe epigastric pain associated with nausea that began at 2:00 AM. Differential Diagnosis included but are not limited to: Gastritis VS Gallstones VS Kidney stones VS Constipation vs. colitis vs. gastroenteritis Plan: -- Labs -- Morphine -- Pepcid -- IV Fluids -- Zofran Inj -- Urine Test -- Qualitative Urine -- Urinalysis -- Ultrasound Complete Abdomen -- Reassess and disposition Prior Visits: Notes and results from previous visits were reviewed. On 12/08/16 patient came in complaining of intermittent shortness of breath and chest pain for the past three months. Patient states she's gone multiple times to the emergency department for similar symptoms, but doctors couldn't find cause of symptoms. Progress Notes: 02/18/17 08:38 Patient on examination with focal epigastric pain, no lower abdominal pain noted. Denies chest pain or sob. IV morphine given with no improvement in pain. Leukocytosis noted, she has had this in prior evaluations, although currently afebrile and cv stable. Ultrasound pending at this time. ULTRASOUND COMPLETE ABDOMEN Report Date : 02/18/2017 10:43:33 Dictator : Berhane Alamo MD IMPRESSION: Limited study. Fatty hepatic infiltration however other infiltrative hepatocellular disease process not excluded. No evidence of cholelithiasis. 02/18/17 16:20 - Lab Interpretations Lab Results: 02/18/17 06:50 02/18/17 06:50 Lab Results 02/18/17 07:30: Urine Color Yellow, Urine Appearance Clear, Urine pH 5.5, Ur Specific Fleming >= 1.030, Urine Protein 30 H, Urine Glucose (UA) Negative, Urine Ketones Negative, Urine Blood Large H, Urine Nitrate Negative, Urine Bilirubin Negative, Urine Urobilinogen 1.0 H, Ur Leukocyte Esterase Negative, Urine RBC 2 - 5, Urine WBC 0 - 2, Ur Epithelial Cells 1 - 3, Amorphous Sediment Many, Urine Bacteria Mod, Urine HCG, Qual Negative 02/18/17 06:50: Sodium 144, Potassium 3.7, Chloride 104, Carbon Dioxide 27, Anion Gap 17, BUN 14, Creatinine 0.7, Est GFR ( Amer) > 60, Est GFR (Non- Af Amer) > 60, Random Glucose 136 H, Calcium 9.2, Total Bilirubin 0.4, AST 27, ALT 25, Alkaline Phosphatase 76, Total Protein 7.7, Albumin 4.1, Globulin 3.5, Albumin/Globulin Ratio 1.2, Amylase 48, Lipase 84 02/18/17 06:50: PT 10.5, INR 0.97, APTT 30.0 02/18/17 06:50: WBC 14.1 H D, RBC 4.05, Hgb 10.7 L, Hct 33.7 L, MCV 83.2, MCH 26.4, MCHC 31.8, RDW 14.1, Plt Count 342, MPV 10.3, Gran % 81.0 H, Lymph % (Auto ) 13.7 L, [place] % (Auto) 4.6, Eos % (Auto) 0.5 L, Baso % (Auto) 0.2, Gran # 11.41 H, Lymph # 1.9, [place] # 0.7 H, Eos # 0.1, Baso # 0.03 I have reviewed the lab results: Yes - RAD Interpretation Radiology Orders: 02/18/17 08:33 ABDOMEN COMPLETE [US] Stat - Medication Orders Current Medication Orders: Discontinued Medications Famotidine (Pepcid) 20 mg IVP STAT STA Stop: 02/18/17 07:35 Last Admin: 02/18/17 07:54 Dose: 20 mg Sodium Chloride (Sodium Chloride 0.9%) 1,000 mls @ 1,000 mls/hr IV .Q1H STA Stop: 02/18/17 08:33 Last Admin: 02/18/17 07:55 Dose: 1,000 mls/hr Ceftriaxone Sodium (Rocephin 1 Gram Ivpb) 1 gm in 100 mls @ 200 mls/hr IVPB ONCE STA PRN Reason: Protocol Stop: 02/18/17 15:09 Last Admin: 02/18/17 15:14 Dose: 200 mls/hr Ketorolac Tromethamine (Toradol) 30 mg IVP ONCE ONE Stop: 02/18/17 10:55 Last Admin: 02/18/17 11:14 Dose: 30 mg Morphine Sulfate (Morphine) 2 mg IVP STAT STA Stop: 02/18/17 07:35 Last Admin: 02/18/17 07:54 Dose: 2 mg Re-Assess: ALEX Pain Assessment Document 02/18/17 08:54 AD (Rec: 02/18/17 09:08 AD [id number]) Pain Reassessment Is this a pain reassessment? Yes Sleep Is patient sleeping during reassessment? No Presence of Pain Presence of Pain Yes Pain Scale Used Pain Scale Used Numeric Location Pain Location Body Site Abdomen Description Description Sharp Intensity of Pain at present 8 Pain Behavior Moaning Facial Grimacing Aggravating Factors Changing Position Exercise/Activity Alleviating Factors/Management Position Change Techniques Morphine Sulfate (Morphine) 2 mg IVP STAT STA Stop: 02/18/17 08:34 Last Admin: 02/18/17 08:49 Dose: 2 mg Re-Assess: ALEX Pain Assessment Document 02/18/17 09:49 AD (Rec: 02/18/17 10:23 AD [id number]) Pain Reassessment Is this a pain reassessment? Yes Sleep Is patient sleeping during reassessment? No Presence of Pain Presence of Pain Yes Pain Scale Used Pain Scale Used Numeric Location Pain Location Body Site Abdomen Description Description Sharp Intensity of Pain at present 5 Pain Behavior Facial Grimacing Aggravating Factors Changing Position Alleviating Factors/Management Medication Techniques Position Change Alleviating Factors Medication Ondansetron HCl (Zofran Inj) 4 mg IVP ONCE ONE Stop: 02/18/17 07:35 Last Admin: 02/18/17 07:54 Dose: 4 mg ED OBSERVATION Date of observation admission: 02/18/17 Time of observation admission: 07:00 - Observation admission statement Patient is being placed in observation because:: Evaluation for abdominal pain including labs, ultrasound and serial exams. - Goals of Observation Goals of observation are:: Management of pain as well as radiographic evaluation. - Progress Note Progress Note: 02/18/17 10:25 Improved but persistent epigastric pain. Leukocytosis noted. Afebrile. Will continue iv hydration, awaiting ultrasound results. Patient with return of severe pain at 13:00. Additional pain mediation ordered. Pain periumbilical. Given persistent pain and leukocytosis, CT ordered. On re-evaluation pain improved but persistent. Any oral intake of liquids exacerbates pain. No recent travel by history. CT reviewed. Urinalysis reviewed with patient, will treat for possible UTI although I feel upper abdominal pain unlikely secondary to this. No cva tenderness noted with serial exams. Due to persistent pain after period of observation in the ED, will admit for observation to hospitalist service. - Scribe Statement The provider has reviewed the documentation as recorded by the Scribe Giacomo Augustin All medical record entries made by the Scribe were at my direction and personally dictated by me. I have reviewed the chart and agree that the record accurately reflects my personal performance of the history, physical exam, medical decision making, and the department course for this patient. I have also personally directed, reviewed, and agree with the discharge instructions and disposition. Disposition/Present on Arrival - Present on Arrival Any Indicators Present on Arrival: No History of DVT/PE: No History of Uncontrolled Diabetes: No Urinary Catheter: No History of Decub. Ulcer: No History Surgical Site Infection Following: None - Disposition Have Diagnosis and Disposition been Completed?: Yes Diagnosis: Intractable abdominal pain, Gastritis, Gastroenteritis, Leukocytosis, UTI ( urinary tract infection) Disposition: HOSPITALIZED Disposition Time: 16:23 Patient Plan: Admission, Observation Patient Problems: Current Active Problems Problem Status Onset Gastritis Acute Gastroenteritis Acute Intractable abdominal pain Acute Leukocytosis Acute Condition: FAIR
[2017-02-18 07:55] LABS: BASO # 0.03 K/mm3 (0.0-2.0); BASO % 0.2 % (0.0-3.0); EOS # 0.1 (0.0-0.7); EOS % 0.5 % (1.5-5.0); GRAN # 11.41 (1.4-6.5); HEMATOCRIT 33.7 % (36.0-48.0); LYMPH # 1.9 (1.2-3.4); LYMPH % 13.7 % (22.0-35.0); MEAN CELL VOLUME 83.2 fl (80.0-105.0); MEAN CORPUSCULAR HEMOGLOBIN 26.4 pg (25.0-35.0); MEAN CORPUSCULAR HGB CONC 31.8 g/dl (31.0-37.0); MEAN PLATELET VOLUME 10.3 fl (7.0-11.0); MONO # 0.7 (0.1-0.6); MONO % 4.6 % (1.0-6.0); RED CELL DISTRIBUTION WIDTH 14.1 % (11.5-14.5); WHITE BLOOD COUNT 14.1 10^3/ul (4.5-11.0)
[2017-02-18 08:09] LABS: INR 0.97 (0.93-1.08)
[2017-02-18 08:14] LABS: ALB/GLOB RATIO 1.2 (1.1-1.8); ALKALINE PHOSPHATASE 76 U/L (38-126); ALT/SGPT 25 U/L (7-56); AMYLASE 48 U/L (35-125); AST/SGOT 27 U/L (14-36); BILIRUBIN,TOTAL 0.4 mg/dL (0.2-1.3); BLOOD UREA NITROGEN 14 mg/dL (7-21); CALCIUM 9.2 mg/dL (8.4-10.5); CARBON DIOXIDE 27 mmol/L (21-33); CHLORIDE 104 mmol/L (98-107); GFR AFRICAN-AMERICAN > 60; GLUCOSE,RANDOM 136 mg/dL (70-110); LIPASE 84 U/L (23-300); POTASSIUM 3.7 mmol/L (3.6-5.0); SODIUM 144 mmol/L (132-148); TOTAL PROTEIN 7.7 g/dL (5.8-8.3)
[2017-02-18 08:39] LABS: PH,URINE 5.5 (4.7-8.0); URINE APPEARANCE CLEAR (CLEAR); URINE BILIRUBIN NEGATIVE (NEGATIVE); URINE BLOOD LARGE (NEGATIVE); URINE COLOR YELLOW (YELLOW); URINE GLUCOSE (UA) NEGATIVE (NEGATIVE); URINE KETONE NEGATIVE (NEGATIVE); URINE LEUKOCYTE ESTERASE NEGATIVE Leu/uL (NEGATIVE); URINE PROTEIN 30 mg/dL (<30 mg/dL)
[2017-02-18 08:57] LABS: URINE AMORPHOUS SEDIMENT MANY; URINE BACTERIA MOD (NEG); URINE WBC 0 - 2 /hpf (0-6)
--- NOTE | 2017-02-18 10:45 | US ---
HISTORY: Upper abdominal pain COMPARISON: No prior TECHNIQUE: Sonographic evaluation of the abdomen. FINDINGS: LIVER: Measures approximately 15.4 cm in greatest CC dimension. . Smooth contour however increased echogenicity of the liver parenchyma likely representing fatty infiltration however other infiltrative hepatocellular disease process not excluded. No mass. No intrahepatic bile duct dilatation. GALLBLADDER: Gallbladder is physiologically distended. No evidence of intraluminal gallbladder calculi. No pericholecystic fluid collections or sonographic Shen sign. COMMON BILE DUCT: Measures ranging between approximately 5.7 and 7.8 mm. No stones. No dilatation. PANCREAS: Pancreas not visualized due to large body habitus and bowel gas RIGHT KIDNEY: Measures approximately 13.3 x 5.6 x 6.2cm. Normal echogenicity. No calculus, mass, or hydronephrosis. LEFT KIDNEY: Measures approximately 13.1 x 5.5 x 6.4cm. Normal echogenicity. No calculus, mass, or hydronephrosis. SPLEEN: Normal in size and contour. No mass. AORTA: No aneurysmal dilatation. IVC: Unremarkable. OTHER FINDINGS: None. IMPRESSION: Limited study. Fatty hepatic infiltration however other infiltrative hepatocellular disease process not excluded. No evidence of cholelithiasis.
--- NOTE | 2017-02-18 13:23 | CT ---
PROCEDURE: CT abdomen pelvis dated 02/18/2017 HISTORY: hematuria COMPARISON: None. TECHNIQUE: Contiguous axial images of the abdomen and pelvis performed without oral or intravenous contrast material. Additional 2 dimensional sagittal and coronal reformats provided. Note that this examination is limited due to large body habitus with streak and beam hardening artifact partially obscuring fine soft tissue detail. Radiation dose: Total exam DLP = 2037.81 mGy-cm. This CT exam was performed using one or more of the following dose reduction techniques: Automated exposure control, adjustment of the mA and/or kV according to patient size, and/or use of iterative reconstruction technique. FINDINGS: LOWER THORAX: Lung bases are clear without focal consolidation effusion or pneumothorax. Heart size within range of normal. No significant pericardial effusion. LIVER: Liver is enlarged measuring nearly 20 cm in CC dimension. No obvious hepatic mass or collection seen on this noncontrast CT scan. GALLBLADDER AND BILE DUCTS: Gallbladder is physiologically distended. No evidence of intraluminal gallbladder calculi. PANCREAS: Unremarkable. No mass. No ductal dilatation. SPLEEN: Spleen is upper limits of normal measuring nearly 13 cm in AP dimension. No splenic mass collection or calcification. ADRENALS: There are no adrenal lesions. KIDNEYS AND URETERS: Kidneys demonstrate relatively symmetric nephrograms. No evidence of nephrolithiasis or hydronephrosis. No obvious renal mass or collection identified on this noncontrast study. BLADDER: The urinary bladder is physiologically distended. . No evidence of both intraluminal calculi. Due to large body habitus and crossing streak and beam hardening artifact evaluation for bladder wall thickening is limited. Rule out UTI with clinical correlation and urinalysis. REPRODUCTIVE: Uterus appears grossly unremarkable. Adnexum poorly visualized APPENDIX: Appendix is not seen with certainty however no obvious inflammatory changes right lower quadrant of the abdomen. BOWEL: Evaluation of the bowel is limited due to the lack of oral contrast. Stomach is distended with food debris liquid and air. Visualized loops of small bowel exhibit normal contour and caliber. No evidence of acute mechanical small bowel obstruction. . There appears to be a few scattered colonic diverticula however no definitive radiographic evidence of acute diverticulitis. No evidence of abnormal mural wall thickening. . PERITONEUM: Unremarkable. No fluid collection. No free air. Tiny fat containing umbilical hernia. LYMPH NODES: Unremarkable. No enlarged lymph nodes. VASCULATURE: Unremarkable. No aortic aneurysm. BONES: Multilevel small chronic appearing Schmorl's nodes are seen in the lower thoracic region; rule out Scheuermann's disease. OTHER FINDINGS: None. IMPRESSION: Limited study due to large body habitus. No evidence of nephrolithiasis or hydronephrosis. Due to large body habitus and crossing streak and beam hardening artifact evaluation for bladder wall thickening is limited. Rule out UTI with clinical correlation and urinalysis. Mild hepatomegaly. Appendix is not seen with certainty however no obvious inflammatory changes right lower quadrant of the abdomen. Few scattered colonic diverticula without radiographic evidence of acute diverticulitis. See above discussion for additional details and findings.
[2017-02-18] MEDS ORDERED: cefTRIAXone 1 gm 1 GM/100 ML BAG IVPB STA (14:40)
--- NOTE | 2017-02-18 17:37 | CP.PCM.HP ---
<LUNA,MARK - Last Filed: 02/18/17 19:07> History of Present Illness - History of Present Illness History of Present Illness: Ms. Scherer is a 21yr F with PMH asthma, arthritis, osteopenia, past psych history of bipolar dz, anxiety and oppositional defiant disorder who presented w / epigastric pain that started earlier at 2AM a/w 6 episodes of green runny diarrhea and nausea but no vomiting. Pain is non-radiating, constant and sharp, 10/10 at its worst and 8/10 after pain mgmt in ED.Pt states that she was with friends, smoking marijuana and drinking EOTH (peach-flavored gin) and she felt off to the point where she didn't want to continue smoking. Pt states that she returned home around 5AM and had a pie from [employer] w/ some milk. Pt describes her normal diet as high fat and high carb. denies fevers, chills, recent illness, cp, sob, palpitations, vomiting, weakness. Pt mentions that she is under a lot of stress at home and thinks her mom will kick her out soon. patient also has multiple MD's for primary care, cardio (w/u palpitations), neuro (hedaches), endo (thhyroid when she was younger). 10-point ROS was reviewed and is otherwise negative. PMH: as above PSH: EGD for GI surgery clearance (never had the srugery) Meds: not taking any Allergies: NKDA SHx: lives w/ mom (seems like some tension between the two), smokes 4-5cigs/day , +marijuana, +ETOH occasional, denies other substances FHx: says she might as well not have any family, and states that they don't tell her anything Present on Admission - Present on Admission Any Indicators Present on Admission: No Review of Systems - Review of Systems All systems: reviewed and no additional remarkable complaints except (as per HPI ) Past Patient History - Infectious Disease Hx of Infectious Diseases: None - Tetanus Immunizations Tetanus Immunization: Unknown - Past Social History Smoking Status: Light Smoker < 10 Cigarettes Daily Alcohol: Occasional Drugs: Cannabis Home Situation {Lives}: With Family - CARDIAC Hx Cardiac Disorders: No Hx Hypertension: No - PULMONARY Hx Asthma: Yes - NEUROLOGICAL Hx Neurological Disorder: No - HEENT Hx HEENT Problems: No - RENAL Hx Chronic Kidney Disease: No - ENDOCRINE/METABOLIC Hx Hyperthyroidism: Yes - HEMATOLOGICAL/ONCOLOGICAL Hx Anemia: Yes - INTEGUMENTARY Hx Dermatological Problems: No - MUSCULOSKELETAL/RHEUMATOLOGICAL Hx Arthritis: Yes - GASTROINTESTINAL Hx Gastrointestinal Disorders: No - GENITOURINARY/GYNECOLOGICAL Other/Comment: POLYCYSTIC OVARY - PSYCHIATRIC Hx Psychophysiologic Disorder: Yes Hx Anxiety: Yes Hx Substance Use: Yes (CANNABIS) Other/Comment: ODD - SURGICAL HISTORY Hx Surgeries: No - ANESTHESIA Hx Anesthesia: No Hx Anesthesia Reactions: No Hx Malignant Hyperthermia: No Meds Home Medications: Home Medication List Medication Instructions Recorded Confirmed Type Ibuprofen [Motrin Tab] 400 mg PO Q6H PRN #20 tab 02/19/17 Rx Pantoprazole [Protonix EC Tab] 40 mg PO 0600 PRN #10 ect 02/19/17 Rx Allergies/Adverse Reactions: Allergies Allergy/AdvReac Type Severity Reaction Status Date / Time No Known Allergies Allergy Verified 12/18/16 16:56 Physical Exam - Constitutional Appears: Well, No Acute Distress - Head Exam Head Exam: NORMAL INSPECTION - Eye Exam Eye Exam: EOMI, Normal appearance - ENT Exam ENT Exam: Mucous Membranes Moist - Neck Exam Neck exam: Positive for: Normal Inspection - Respiratory Exam Respiratory Exam: Clear to Auscultation Bilateral, NORMAL BREATHING PATTERN. absent: Wheezes, Respiratory Distress - Cardiovascular Exam Cardiovascular Exam: RRR, +S1, +S2 - GI/Abdominal Exam GI & Abdominal Exam: Normal Bowel Sounds, Soft, Tenderness (subjective but not tender to palpation). absent: Guarding, Organomegaly, Rigid Additional comments: obese body habits - Extremities Exam Extremities exam: Positive for: full ROM. Negative for: pedal edema - Back Exam Back exam: NORMAL INSPECTION. absent: CVA tenderness (L), CVA tenderness (R) - Neurological Exam Neurological exam: Alert, Oriented x3 - Psychiatric Exam Psychiatric exam: Flat Affect, Normal Mood - Skin Skin Exam: Normal Color, Warm Results - Vital Signs Recent Vital Signs: Last Vital Signs Temp 98.7 F 02/18/17 06:24 Pulse 84 02/18/17 17:00 Resp 16 02/18/17 17:00 BP 136/75 02/18/17 17:00 Pulse Ox 98 02/18/17 17:00 - Labs Result Diagrams: 02/18/17 06:50 02/18/17 06:50 Assessment & Plan - Assessment and Plan (Free Text) Assessment: 21yo F PMH bipolar dz, anxiety, ODD, ADHD, asthma, arthritis and osteopenia w/ some social issues at home p/w epigastric pain likely 2/2 gastritis Plan: 1. Gastritis a/w n/d - unlikely pancreatitis due to lipase/amylase levels being normal - unlikely cholecystic due to negative US results - fatty liver on US likely due to unhealthy lifestyle - PTX and Zofran PRN - pt tolerating diet (was seen eating a sandwich in ED), but placed on FLD to monitor nausea and GI symptoms - advance diet as tolerated - stool analysis, culture, c.diff ordered - pain mgmt: motrin, tramadol, toradol prn 2. Leukocytosis - baseline of leukocytosis compared w/ prior ED visit - Rocephin x1 given in ED - f/u cultures 3. Hx Thyroid dz? - thyroid panel ordered 4. Substance abuse (ETOH and marijuana) - educated pt on negative effects of substances - encouraged cessation - monitor for signs of withdrawal 5. Hx of psych disorders - pt requested to not have psych consulted - recommend outpatient psych FLD NS 150 PTX/SCDs Patient was seen, evaluated and discussed with attending, Dr. Catrachita Baker PGY1 - Date & Time Date: 02/18/17 Time: 18:00 <Ben Domínguez - Last Filed: 02/19/17 17:32> Results - Vital Signs Recent Vital Signs: Last Vital Signs Temp 97.7 F 02/19/17 08:15 Pulse 60 02/19/17 08:15 Resp 20 02/19/17 08:15 BP 108/63 02/19/17 08:15 Pulse Ox 99 02/19/17 08:15 - Labs Result Diagrams: 02/19/17 06:55 02/19/17 06:55 Labs: Laboratory Results - last 24 hr 02/19/17 02/19/17 02/19/17 04:00 06:55 06:55 WBC 10.4 D RBC 3.77 Hgb 9.6 L Hct 31.4 L MCV 83.3 MCH 25.5 MCHC 30.6 L RDW 14.1 Plt Count 283 MPV 10.1 Sodium 140 Potassium 3.6 Chloride 106 Carbon Dioxide 26 Anion Gap 12 BUN 7 Creatinine 0.6 Est GFR ( Amer) > 60 Est GFR (Non-Af Amer) > 60 Random Glucose 91 Calcium 8.3 L Total Bilirubin 0.2 AST 22 ALT 26 Alkaline Phosphatase 59 Total Protein 6.0 Albumin 3.1 Globulin 2.9 Albumin/Globulin Ratio 1.1 Urine Opiates Screen Positive H Urine Methadone Screen Negative Ur Barbiturates Screen Negative Ur Phencyclidine Scrn Negative Ur Amphetamines Screen Negative U Benzodiazepines Scrn Negative U Oth Cocaine Metabols Negative U Cannabinoids Screen Positive H Attending/Attestation - Attestation I have personally seen and examined this patient.: Yes I have fully participated in the care of the patient.: Yes I have reviewed all pertinent clinical information: Yes Notes (Text): I have seen and examined the patient at bedside. Briefly this is 21 year old female with history of asthma, arthritis, osteopenia, past psych history of bipolar dz, anxiety and oppositional defiant disorder who presented with epigastric pain and 6 episodes of non bloody diarrhea which started after she drank alcohol and was smoking marijuana and found to have most likely gastritis vs gastroenteritis. Currently she denies any abdominal pain and is requesting to eat. Will given her liquid diet and advance as tolerated. Counselling provided regarding substance use and alcohol abuse. Upon discharge patient will follow up with Sophia. Dr Ben Domínguez
[2017-02-18] MEDS: Sodium Chloride 0.9% 1,000 ML IV SCH (18:10)
[2017-02-18 18:28] VITALS: BMI 43.6
[2017-02-18 19:50] LABS: FREE T4 1.17 ng/dL (0.78-2.19)
[2017-02-18 20:04] LABS: THYROID STIMULATING HORMONE 5.63 mIU/mL (0.46-4.68)
[2017-02-19] MEDS: Sodium Chloride 0.9% 1,000 ML IV SCH ×2 (03:30→09:38)
[2017-02-19] MEDS ORDERED: Pantoprazole 40 mg EC Tab PO SCH (06:00)
[2017-02-19 07:04] LABS: HEMATOCRIT 31.4 % (36.0-48.0); MEAN CELL VOLUME 83.3 fl (80.0-105.0); MEAN CORPUSCULAR HEMOGLOBIN 25.5 pg (25.0-35.0); MEAN CORPUSCULAR HGB CONC 30.6 g/dl (31.0-37.0); MEAN PLATELET VOLUME 10.1 fl (7.0-11.0); RED CELL DISTRIBUTION WIDTH 14.1 % (11.5-14.5); WHITE BLOOD COUNT 10.4 10^3/ul (4.5-11.0)
[2017-02-19 07:32] LABS: ALB/GLOB RATIO 1.1 (1.1-1.8); ALKALINE PHOSPHATASE 59 U/L (38-126); ALT/SGPT 26 U/L (7-56); AST/SGOT 22 U/L (14-36); BILIRUBIN,TOTAL 0.2 mg/dL (0.2-1.3); BLOOD UREA NITROGEN 7 mg/dL (7-21); CALCIUM 8.3 mg/dL (8.4-10.5); CARBON DIOXIDE 26 mmol/L (21-33); CHLORIDE 106 mmol/L (98-107); GFR AFRICAN-AMERICAN > 60; GLUCOSE,RANDOM 91 mg/dL (70-110); POTASSIUM 3.6 mmol/L (3.6-5.0); SODIUM 140 mmol/L (132-148)
[2017-02-19 08:16] VITALS: BP 108/63; PULSE 60; RESP 20; TEMP 97.7; O2SAT 99
--- NOTE | 2017-02-21 04:46 | CP.PCM.DIS ---
<CRISTINA CARRASCO - Last Filed: 02/21/17 04:39> Provider - Provider Date of Admission: 02/18/17 10:26 Attending physician: Ben Domínguez MD Primary care physician: Liat Cortes MD Time Spent in preparation of Discharge (in minutes): 45 Hospital Course - Lab Results Lab Results: Micro Results 02/18/17 20:10 Blood Blood Culture - Preliminary NO GROWTH AFTER 48 HOURS 02/18/17 20:00 Blood Blood Culture - Preliminary NO GROWTH AFTER 48 HOURS 02/19/17 04:00 Urine Urine Culture - Final No Growth (<1,000 CFU/ML) Most Recent Lab Values WBC 10.4 10^3/ul (4.5-11.0) D 02/19/17 06:55 RBC 3.77 10^6/uL (3.5-6.1) 02/19/17 06:55 Hgb 9.6 g/dL (12.0-16.0) L 02/19/17 06:55 Hct 31.4 % (36.0-48.0) L 02/19/17 06:55 MCV 83.3 fl (80.0-105.0) 02/19/17 06:55 MCH 25.5 pg (25.0-35.0) 02/19/17 06:55 MCHC 30.6 g/dl (31.0-37.0) L 02/19/17 06:55 RDW 14.1 % (11.5-14.5) 02/19/17 06:55 Plt Count 283 10^3/uL (120.0-450.0) 02/19/17 06:55 MPV 10.1 fl (7.0-11.0) 02/19/17 06:55 Gran % 81.0 % (50.0-68.0) H 02/18/17 06:50 Lymph % (Auto) 13.7 % (22.0-35.0) L 02/18/17 06:50 [place] % (Auto) 4.6 % (1.0-6.0) 02/18/17 06:50 Eos % (Auto) 0.5 % (1.5-5.0) L 02/18/17 06:50 Baso % (Auto) 0.2 % (0.0-3.0) 02/18/17 06:50 Gran # 11.41 (1.4-6.5) H 02/18/17 06:50 Lymph # 1.9 (1.2-3.4) 02/18/17 06:50 [place] # 0.7 (0.1-0.6) H 02/18/17 06:50 Eos # 0.1 (0.0-0.7) 02/18/17 06:50 Baso # 0.03 K/mm3 (0.0-2.0) 02/18/17 06:50 PT 10.5 Seconds (9.9-11.8) 02/18/17 06:50 INR 0.97 (0.93-1.08) 02/18/17 06:50 APTT 30.0 Seconds (23.7-30.8) 02/18/17 06:50 Sodium 140 mmol/L (132-148) 02/19/17 06:55 Potassium 3.6 mmol/L (3.6-5.0) 02/19/17 06:55 Chloride 106 mmol/L (98-107) 02/19/17 06:55 Carbon Dioxide 26 mmol/L (21-33) 02/19/17 06:55 Anion Gap 12 (10-20) 02/19/17 06:55 BUN 7 mg/dL (7-21) 02/19/17 06:55 Creatinine 0.6 mg/dL (0.5-1.4) 02/19/17 06:55 Est GFR ( Amer) > 60 02/19/17 06:55 Est GFR (Non-Af Amer) > 60 02/19/17 06:55 Random Glucose 91 mg/dL (70-110) 02/19/17 06:55 Calcium 8.3 mg/dL (8.4-10.5) L 02/19/17 06:55 Total Bilirubin 0.2 mg/dL (0.2-1.3) 02/19/17 06:55 AST 22 U/L (14-36) 02/19/17 06:55 ALT 26 U/L (7-56) 02/19/17 06:55 Alkaline Phosphatase 59 U/L (38-126) 02/19/17 06:55 Total Protein 6.0 g/dL (5.8-8.3) 02/19/17 06:55 Albumin 3.1 g/dL (3.0-4.8) 02/19/17 06:55 Globulin 2.9 gm/dL 02/19/17 06:55 Albumin/Globulin Ratio 1.1 (1.1-1.8) 02/19/17 06:55 Amylase 48 U/L (35-125) 02/18/17 06:50 Lipase 84 U/L (23-300) 02/18/17 06:50 Free T4 1.17 ng/dL (0.78-2.19) 02/18/17 07:00 TSH 3rd Generation 5.63 mIU/mL (0.46-4.68) H 02/18/17 07:00 Urine Color Yellow (YELLOW) 02/18/17 07:30 Urine Appearance Clear (CLEAR) 02/18/17 07:30 Urine pH 5.5 (4.7-8.0) 02/18/17 07:30 Ur Specific [place] >= 1.030 (1.005-1.035) 02/18/17 07:30 Urine Protein 30 mg/dL (<30 mg/dL) H 02/18/17 07:30 Urine Glucose (UA) Negative mg/dL (NEGATIVE) 02/18/17 07:30 Urine Ketones Negative mg/dL (NEGATIVE) 02/18/17 07:30 Urine Blood Large (NEGATIVE) H 02/18/17 07:30 Urine Nitrate Negative (NEGATIVE) 02/18/17 07:30 Urine Bilirubin Negative (NEGATIVE) 02/18/17 07:30 Urine Urobilinogen 1.0 E.U./dL (<1 E.U./dL) H 02/18/17 07:30 Ur Leukocyte Esterase Negative [place]/uL (NEGATIVE) 02/18/17 07:30 Urine RBC 2 - 5 /hpf (0-2) 02/18/17 07:30 Urine WBC 0 - 2 /hpf (0-6) 02/18/17 07:30 Ur Epithelial Cells 1 - 3 /hpf (0-5) 02/18/17 07:30 Amorphous Sediment Many 02/18/17 07:30 Urine Bacteria Mod (NEG) 02/18/17 07:30 Urine HCG, Qual Negative (NEGATIVE) 02/18/17 07:30 Urine Opiates Screen Positive (NEGATIVE) H 02/19/17 04:00 Urine Methadone Screen Negative (NEGATIVE) 02/19/17 04:00 Ur Barbiturates Screen Negative (NEGATIVE) 02/19/17 04:00 Ur Phencyclidine Scrn Negative (NEGATIVE) 02/19/17 04:00 Ur Amphetamines Screen Negative (NEGATIVE) 02/19/17 04:00 U Benzodiazepines Scrn Negative (NEGATIVE) 02/19/17 04:00 U Oth Cocaine Metabols Negative (NEGATIVE) 02/19/17 04:00 U Cannabinoids Screen Positive (NEGATIVE) H 02/19/17 04:00 - Hospital Course Hospital Course: Ms. Scherer is a 21yr F with PMH asthma, arthritis, osteopenia, past psych history of bipolar dz, anxiety and oppositional defiant disorder who presented w / epigastric pain that started prior to ED visit at 2AM a/w 6 episodes of green runny diarrhea and nausea but no vomiting. Pain is non-radiating, constant and sharp, 10/10 at its worst and 8/10 after pain mgmt in ED.Pt states that she was with friends, smoking marijuana and drinking EOTH (peach-flavored gin) and she felt off to the point where she didn't want to continue smoking. Pt states that she returned home around 5AM and had a pie from [employer] w/ some milk. Pt describes her normal diet as high fat and high carb. denies fevers, chills, recent illness, cp, sob, palpitations, vomiting, weakness. Pt mentions that she is under a lot of stress at home and thinks her mom will kick her out soon. patient also has multiple MD's for primary care, cardio (w/u palpitations), neuro (headaches), endo (thyroid when she was younger). The patient was transferred to med-surg for closer monitoring. The patient was started on liquid diet and advanced as tolerated. UDS +opiates and marijuana. pt is anemic and had a mild wbc count that was trending down. pt also found to be subclinically hypothyroid. pt improved and was optimized for d/ c. on d/c morning, the patient is in NAD and denies cp, sob, n/v/d, f/c. pt prescribed protonix and motrin prn. pt referred to dr. Cortes for f/u and at [facility] clinic. Pt educated about refraining from high fat and high carb diet, and cessation of ETOH and marijuana use. - Date & Time of H&P Date of H&P: 02/18/17 Time of H&P: 17:35 Discharge Exam - Additional Findings Additional findings: - Constitutional Appears: Well, No Acute Distress - Head Exam Head Exam: NORMAL INSPECTION - Eye Exam Eye Exam: EOMI, Normal appearance - ENT Exam ENT Exam: Mucous Membranes Moist - Neck Exam Neck exam: Positive for: Normal Inspection - Respiratory Exam Respiratory Exam: Clear to Auscultation Bilateral, NORMAL BREATHING PATTERN. absent: Wheezes, Respiratory Distress - Cardiovascular Exam Cardiovascular Exam: RRR, +S1, +S2 - GI/Abdominal Exam GI & Abdominal Exam: Normal Bowel Sounds, Soft, Tenderness (subjective but not tender to palpation). absent: Guarding, Organomegaly, Rigid Additional comments: obese body habits - Extremities Exam Extremities exam: Positive for: full ROM. Negative for: pedal edema - Back Exam Back exam: NORMAL INSPECTION. absent: CVA tenderness (L), CVA tenderness (R) - Neurological Exam Neurological exam: Alert, Oriented x3 - Psychiatric Exam Psychiatric exam: Flat Affect, Normal Mood - Skin Skin Exam: Normal Color, Warm Discharge Plan - Follow Up Plan Condition: FAIR Disposition: HOME/ ROUTINE Instructions: Gastritis (DC), Gastroenteritis (DC), Acute Abdominal Pain (DC) Additional Instructions: Please Follow up with: [address] - please refrain from high fat and high carb diets - please refrain smoking marijuana and drinking alcohol - if you experience severe abdominal pain or bleeding in stools/vomit, please go to ER for workup Thank you Cristina Carrasco PGY1 Dr. Domínguez, Attending Physician Referrals: Liat Cortes MD [Primary Care Provider] - <Ben Domínguez - Last Filed: 03/03/17 15:37> Provider - Provider Date of Admission: 02/18/17 07:00 Attending physician: Ben Domínguez MD Primary care physician: Liat Cortes MD Hospital Course - Lab Results Lab Results: Micro Results 02/18/17 20:10 Blood Blood Culture - Final NO GROWTH AFTER 5 DAYS 02/18/17 20:10 Blood Gram Stain - Final TEST NOT PERFORMED 02/18/17 20:00 Blood Blood Culture - Final NO GROWTH AFTER 5 DAYS 02/18/17 20:00 Blood Gram Stain - Final TEST NOT PERFORMED 02/19/17 04:00 Urine Urine Culture - Final No Growth (<1,000 CFU/ML) Most Recent Lab Values WBC 10.4 10^3/ul (4.5-11.0) D 02/19/17 06:55 RBC 3.77 10^6/uL (3.5-6.1) 02/19/17 06:55 Hgb 9.6 g/dL (12.0-16.0) L 02/19/17 06:55 Hct 31.4 % (36.0-48.0) L 02/19/17 06:55 MCV 83.3 fl (80.0-105.0) 02/19/17 06:55 MCH 25.5 pg (25.0-35.0) 02/19/17 06:55 MCHC 30.6 g/dl (31.0-37.0) L 02/19/17 06:55 RDW 14.1 % (11.5-14.5) 02/19/17 06:55 Plt Count 283 10^3/uL (120.0-450.0) 02/19/17 06:55 MPV 10.1 fl (7.0-11.0) 02/19/17 06:55 Gran % 81.0 % (50.0-68.0) H 02/18/17 06:50 Lymph % (Auto) 13.7 % (22.0-35.0) L 02/18/17 06:50 [place] % (Auto) 4.6 % (1.0-6.0) 02/18/17 06:50 Eos % (Auto) 0.5 % (1.5-5.0) L 02/18/17 06:50 Baso % (Auto) 0.2 % (0.0-3.0) 02/18/17 06:50 Gran # 11.41 (1.4-6.5) H 02/18/17 06:50 Lymph # 1.9 (1.2-3.4) 02/18/17 06:50 [place] # 0.7 (0.1-0.6) H 02/18/17 06:50 Eos # 0.1 (0.0-0.7) 02/18/17 06:50 Baso # 0.03 K/mm3 (0.0-2.0) 02/18/17 06:50 PT 10.5 Seconds (9.9-11.8) 02/18/17 06:50 INR 0.97 (0.93-1.08) 02/18/17 06:50 APTT 30.0 Seconds (23.7-30.8) 02/18/17 06:50 Sodium 140 mmol/L (132-148) 02/19/17 06:55 Potassium 3.6 mmol/L (3.6-5.0) 02/19/17 06:55 Chloride 106 mmol/L (98-107) 02/19/17 06:55 Carbon Dioxide 26 mmol/L (21-33) 02/19/17 06:55 Anion Gap 12 (10-20) 02/19/17 06:55 BUN 7 mg/dL (7-21) 02/19/17 06:55 Creatinine 0.6 mg/dL (0.5-1.4) 02/19/17 06:55 Est GFR ( Amer) > 60 02/19/17 06:55 Est GFR (Non-Af Amer) > 60 02/19/17 06:55 Random Glucose 91 mg/dL (70-110) 02/19/17 06:55 Calcium 8.3 mg/dL (8.4-10.5) L 02/19/17 06:55 Total Bilirubin 0.2 mg/dL (0.2-1.3) 02/19/17 06:55 AST 22 U/L (14-36) 02/19/17 06:55 ALT 26 U/L (7-56) 02/19/17 06:55 Alkaline Phosphatase 59 U/L (38-126) 02/19/17 06:55 Total Protein 6.0 g/dL (5.8-8.3) 02/19/17 06:55 Albumin 3.1 g/dL (3.0-4.8) 02/19/17 06:55 Globulin 2.9 gm/dL 02/19/17 06:55 Albumin/Globulin Ratio 1.1 (1.1-1.8) 02/19/17 06:55 Amylase 48 U/L (35-125) 02/18/17 06:50 Lipase 84 U/L (23-300) 02/18/17 06:50 Free T4 1.17 ng/dL (0.78-2.19) 02/18/17 07:00 TSH 3rd Generation 5.63 mIU/mL (0.46-4.68) H 02/18/17 07:00 Urine Color Yellow (YELLOW) 02/18/17 07:30 Urine Appearance Clear (CLEAR) 02/18/17 07:30 Urine pH 5.5 (4.7-8.0) 02/18/17 07:30 Ur Specific [place] >= 1.030 (1.005-1.035) 02/18/17 07:30 Urine Protein 30 mg/dL (<30 mg/dL) H 02/18/17 07:30 Urine Glucose (UA) Negative mg/dL (NEGATIVE) 02/18/17 07:30 Urine Ketones Negative mg/dL (NEGATIVE) 02/18/17 07:30 Urine Blood Large (NEGATIVE) H 02/18/17 07:30 Urine Nitrate Negative (NEGATIVE) 02/18/17 07:30 Urine Bilirubin Negative (NEGATIVE) 02/18/17 07:30 Urine Urobilinogen 1.0 E.U./dL (<1 E.U./dL) H 02/18/17 07:30 Ur Leukocyte Esterase Negative [place]/uL (NEGATIVE) 02/18/17 07:30 Urine RBC 2 - 5 /hpf (0-2) 02/18/17 07:30 Urine WBC 0 - 2 /hpf (0-6) 02/18/17 07:30 Ur Epithelial Cells 1 - 3 /hpf (0-5) 02/18/17 07:30 Amorphous Sediment Many 02/18/17 07:30 Urine Bacteria Mod (NEG) 02/18/17 07:30 Urine HCG, Qual Negative (NEGATIVE) 02/18/17 07:30 Urine Opiates Screen Positive (NEGATIVE) H 02/19/17 04:00 Urine Methadone Screen Negative (NEGATIVE) 02/19/17 04:00 Ur Barbiturates Screen Negative (NEGATIVE) 02/19/17 04:00 Ur Phencyclidine Scrn Negative (NEGATIVE) 02/19/17 04:00 Ur Amphetamines Screen Negative (NEGATIVE) 02/19/17 04:00 U Benzodiazepines Scrn Negative (NEGATIVE) 02/19/17 04:00 U Oth Cocaine Metabols Negative (NEGATIVE) 02/19/17 04:00 U Cannabinoids Screen Positive (NEGATIVE) H 02/19/17 04:00 Attending/Attestation - Attestation I have personally seen and examined this patient.: Yes I have fully participated in the care of the patient.: Yes I have reviewed all pertinent clinical information, including history, physical exam and plan: Yes Notes (Text): I have seen and examined the patient at bedside. Briefly this is 21 year old female with history of asthma, arthritis, osteopenia, past psych history of bipolar disease, anxiety and oppositional defiant disorder who presented with epigastric pain and 6 episodes of non bloody diarrhea which started after she drank alcohol and was smoking marijuana and found to have most likely gastritis vs gastroenteritis. Patient appears comfortable and she is able to tolerate the diet. Denies any nausea, vomiting or diarrhea. Patient wants to go home. Counselling provided regarding substance use and alcohol abuse. Upon discharge patient will follow up with [facility]. Dr Ben Domínguez
== END 2017-02-19 18:43 | disposition home or self-care (01) ==
LOC: ED 06:12 → EROBSV 07:00 → UNDOADMOB 10:26 → EROBSV 10:26 → ERH 16:28 → 3RNO 17:38 → ERH 17:38 → UNDODISOB 02-19 18:43
PROVIDERS: ADMIT Hospitalist; ATTEND Hospitalist
DX: K29.00 Acute gastritis without bleeding (principal); E28.2 Polycystic ovarian syndrome; F31.9 Bipolar disorder, unspecified; F90.9 Attention-deficit hyperactivity disorder, unspecified type; J45.909 Unspecified asthma, uncomplicated; K52.9 Noninfective gastroenteritis and colitis, unspecified; M85.80 Other specified disorders of bone density and structure, unspecified site; M19.90 Unspecified osteoarthritis, unspecified site; F91.3 Oppositional defiant disorder; N39.0 Urinary tract infection, site not specified; F17.210 Nicotine dependence, cigarettes, uncomplicated; F41.9 Anxiety disorder, unspecified; D72.829 Elevated white blood cell count, unspecified; E05.90 Thyrotoxicosis, unspecified without thyrotoxic crisis or storm; D64.9 Anemia, unspecified; F10.10 Alcohol abuse, uncomplicated; F12.10 Cannabis abuse, uncomplicated
CPT/HCPCS: 36415; 74176; 76700; 80053; 80324; 80345; 80346; 80349; 80353; 80358; 80361; 81001; 82150; 83690; 83992; 84439; 84443; 84703; 85025; 85027; 85610; 85730; 87040; 87086; 96374; 96375; 96376; 99285; G0378; J0696; J1885; J2270; J2405; J7040

== ENCOUNTER 2017-02-21 12:12 | Inpatient (IN) | payer MEDICAID, OTHER ==
[2017-02-21 12:12] VITALS: BMI 43.6
[2017-02-21 13:03] LABS: URINE BILIRUBIN NEGATIVE (NEGATIVE); URINE BLOOD MODERATE (NEGATIVE); URINE GLUCOSE (UA) NEGATIVE (NEGATIVE); URINE KETONE NEGATIVE (NEGATIVE); URINE LEUKOCYTE ESTERASE NEGATIVE Leu/uL (NEGATIVE); URINE PROTEIN NEGATIVE mg/dL (<30 mg/dL); URINE UROBILINOGEN 0.2 E.U./dL (<1 E.U./dL)
[2017-02-21 13:04] LABS: URINE APPEARANCE SL CLOUDY (CLEAR); URINE COLOR YELLOW (YELLOW)
[2017-02-21 13:06] VITALS: O2SAT 100
[2017-02-21 13:11] LABS: BASO # 0.03 K/mm3 (0.0-2.0); BASO % 0.3 % (0.0-3.0); EOS # 0.2 (0.0-0.7); EOS % 2.2 % (1.5-5.0); GRAN # 5.99 (1.4-6.5); GRAN % 65.8 % (50.0-68.0); HEMATOCRIT 31.9 % (36.0-48.0); LYMPH # 2.4 (1.2-3.4); LYMPH % 25.9 % (22.0-35.0); MEAN CELL VOLUME 82.9 fl (80.0-105.0); MEAN CORPUSCULAR HEMOGLOBIN 26.2 pg (25.0-35.0); MEAN CORPUSCULAR HGB CONC 31.7 g/dl (31.0-37.0); MONO # 0.5 (0.1-0.6); MONO % 5.8 % (1.0-6.0); RED CELL DISTRIBUTION WIDTH 14.2 % (11.5-14.5); WHITE BLOOD COUNT 9.1 10^3/ul (4.5-11.0)
[2017-02-21 13:11] LABS: URINE RBC 20 - 25 /hpf (0-2); URINE WBC 0 - 2 /hpf (0-6)
[2017-02-21 13:15] LABS: ALB/GLOB RATIO 1.1 (1.1-1.8); ALKALINE PHOSPHATASE 69 U/L (38-126); ALT/SGPT 23 U/L (7-56); AST/SGOT 27 U/L (14-36); BILIRUBIN,TOTAL 0.3 mg/dL (0.2-1.3); BLOOD UREA NITROGEN 11 mg/dL (7-21); CARBON DIOXIDE 27 mmol/L (21-33); CHLORIDE 105 mmol/L (98-107); GFR AFRICAN-AMERICAN > 60; GLUCOSE,RANDOM 93 mg/dL (70-110); SODIUM 141 mmol/L (132-148); TOTAL PROTEIN 6.9 g/dL (5.8-8.3)
--- NOTE | 2017-02-21 13:23 | ED PDOC ---
Arrival/HPI - General Historian: Patient EM Caveat: Acuity of Condition - History of Present Illness Time/Duration: Prior to Arrival Symptom Onset: Sudden Symptom Course: Resolved Activities at Onset: Emotional Upset Context: Home <Josh Antonio - Last Filed: 02/21/17 14:55> <ParadiseKate - Last Filed: 02/21/17 15:08> - General Time Seen by Provider: 02/21/17 12:13 - History of Present Illness Narrative History of Present Illness (Text): 02/21/17 13:15 Patient is a 21 year old female with history of Bipolar d/o, depression, ADHD who presents to [facility] ED 02/20/17 by Dianna. As per Dianna they were called due to patient being violent at home. As per patient, she states she woke up this morning at 9:30 to her counselor who she was already expecting that day, just unaware of the time. Patient states the counselor was accompanied by a case management assistant and wood boat builder supervisor which was a surprise to her. Patient states that shortly after there was a meeting regarding her progress in trying to get help which led to her being frustrated since she was being blamed for not trying hard enough to get help. The frustration caused patient to begin slamming things hitting her head and throwing things; everyone ran out of the house in fear and called 911. Patient states she really wants help but doesn't seem to have anyone who cares to help her, she feels her mother isn't capable because she isn 't Turkmen speaking. Patient denies suicidal/homicidal ideations, visual/ auditory hallucinations, chest pain, dizziness, shortness of breath, n/v/d. (Josh Antonio) Past Medical History - Provider Review Nursing Documentation Reviewed: Yes - Past History Past History: No Previous - Infectious Disease Hx of Infectious Diseases: None - Tetanus Immunization Tetanus Immunization: Unknown - Past Medical History Past Medical History: No Previous - Cardiac Hx Cardiac Disorders: No Hx Hypertension: No - Pulmonary Hx Asthma: Yes - Neurological Hx Neurological Disorder: No - HEENT Hx HEENT Disorder: No - Renal Hx Renal Disorder: No - Endocrine/Metabolic Hx Hyperthyroidism: Yes - Hematological/Oncological Hx Anemia: Yes - Integumentary Hx Dermatological Disorder: No - Musculoskeletal/Rheumatological Hx Arthritis: Yes - Gastrointestinal Hx Gastritis: Yes - Genitourinary/Gynecological Other/Comment: POLYCYSTIC OVARY - Psychiatric Hx Psychophysiologic Disorder: Yes Hx Anxiety: Yes Hx Substance Use: Yes (CANNABIS) Other/Comment: ODD - Past Surgical History Past Surgical History: No Previous - Anesthesia Hx Anesthesia: No Hx Anesthesia Reactions: No Hx Malignant Hyperthermia: No - Suicidal Assessment Feels Threatened In Home Enviroment: No <Josh Antonio - Last Filed: 02/21/17 14:55> Family/Social History - Physician Review Nursing Documentation Reviewed: Yes Family/Social History: Other (non contributory) Smoking Status: Light Smoker < 10 Cigarettes Daily Hx Alcohol Use: Yes (social) Hx Substance Use: Yes (CANNABIS) Hx Substance Use Treatment: No <Josh Antonio - Last Filed: 02/21/17 14:55> Allergies/Home Meds <Josh Antonio - Last Filed: 02/21/17 14:55> <Kate Ghotra - Last Filed: 02/21/17 15:08> Allergies/Adverse Reactions: Allergies No Known Allergies Allergy (Verified 02/21/17 12:30) Home Medications: Home Meds Medication Instructions Recorded Confirmed lamoTRIgine [LaMICtal] 25 mg PO DAILY 02/21/17 02/21/17 Review of Systems - Physician Review All systems were reviewed & negative as marked: Yes - Review of Systems Systems not reviewed;Unavailable: Acuity of Condition Constitutional: absent: Fatigue, Weight Change Eyes: Normal, Photophobia. absent: Vision Changes ENT: absent: Hearing Changes Respiratory: Normal. absent: SOB, Cough Cardiovascular: Normal. absent: Chest Pain, Palpitations Gastrointestinal: absent: Abdominal Pain, Diarrhea, Nausea, Vomiting Skin: absent: Rash, Pruritis Neurological: absent: Headache, Dizziness Psychiatric: Depression. absent: Suicidal Ideation, Other (denies homicidal ideation, visual/auditory hallucinations) <Josh Antonio - Last Filed: 02/21/17 14:55> Physical Exam Vital Signs Reviewed: Yes Temperature: Afebrile Blood Pressure: Normal Pulse: Regular Respiratory Rate: Normal Appearance: Positive for: Well-Appearing Pain Distress: None Mental Status: Positive for: Alert and Oriented X 3 - Systems Exam Head: Present: Atraumatic, Normocephalic Extroacular Muscles: Present: EOMI Mouth: Present: Moist Mucous Membranes Respiratory/Chest: Present: Clear to Auscultation, Good Air Exchange. No: Respiratory Distress Cardiovascular: Present: Regular Rate and Rhythm, Normal S1, S2. No: Murmurs Abdomen: No: Tenderness, Distention, Normal Bowel Sounds Upper Extremity: Present: Normal Inspection Lower Extremity: Present: Normal Inspection. No: Edema Neurological: Present: Speech Normal Skin: Present: Warm, Normal Color Psychiatric: Present: Alert, Oriented x 3. No: Suicidal Ideation, Homicidal Ideation, Hallucinations <Josh Antonio - Last Filed: 02/21/17 14:55> Vital Signs Temp Pulse Resp BP Pulse Ox 02/21/17 13:05 98.1 F 71 18 112/67 100 Medical Decision Making - Lab Interpretations I have reviewed the lab results: Yes Interpretation: Abnormal lab values - RAD Interpretation Turning Lathe Tender: Radiologist - EKG Interpretation Interpreted by ED Physician: Yes (normal sinus rhythm at 63, normal intervals and axis, no ST changes) Type: 12 lead EKG <Josh Antonio - Last Filed: 02/21/17 14:55> <Kate Ghotra - Last Filed: 02/21/17 15:08> ED Course and Treatment: 02/21/17 14:06 Assessment 21 year old patient presenting with Bipolar episode and depression Plan - EKG - CXR, Right hand XR, Left hand 4th digit XR - CBC, CMP, UA, Alcohol serum - Patient has is medically cleared, has been seen by PES; PES recommends admitting to hospital- Patient will be admitted. (Josh Antonio) 02/21/17 15:07 Patient with noted history, seen with resident, medically cleared, seen by PES and needs to be admitted to psych. (Kate Ghotra) - Lab Interpretations Lab Results: 02/21/17 13:10 02/21/17 12:45 Lab Results 02/21/17 13:10: WBC 9.1, RBC 3.85, Hgb 10.1 L, Hct 31.9 L, MCV 82.9, MCH 26.2, MCHC 31.7, RDW 14.2, Plt Count 315, MPV 10.0, Gran % 65.8, Lymph % (Auto) 25.9, [place] % (Auto) 5.8, Eos % (Auto) 2.2, Baso % (Auto) 0.3, Gran # 5.99, Lymph # 2.4 , [place] # 0.5, Eos # 0.2, Baso # 0.03 02/21/17 12:45: Alcohol, Quantitative < 10 02/21/17 12:45: Sodium 141, Potassium 4.0, Chloride 105, Carbon Dioxide 27, Anion Gap 13, BUN 11, Creatinine 0.7, Est GFR ( Amer) > 60, Est GFR (Non- Af Amer) > 60, Random Glucose 93, Calcium 9.0, Total Bilirubin 0.3, AST 27, ALT 23, Alkaline Phosphatase 69, Total Protein 6.9, Albumin 3.6, Globulin 3.3, Albumin/Globulin Ratio 1.1 02/21/17 12:30: Urine Opiates Screen Negative, Urine Methadone Screen Negative, Ur Barbiturates Screen Negative, Ur Phencyclidine Scrn Negative, Ur Amphetamines Screen Negative, U Benzodiazepines Scrn Positive H, U Oth Cocaine Metabols Negative, U Cannabinoids Screen Positive H 02/21/17 12:30: Urine Color Yellow, Urine Appearance Sl cloudy, Urine pH 6.0, Ur Specific [place] 1.025, Urine Protein Negative, Urine Glucose (UA) Negative, Urine Ketones Negative, Urine Blood Moderate H, Urine Nitrate Negative, Urine Bilirubin Negative, Urine Urobilinogen 0.2, Ur Leukocyte Esterase Negative, Urine RBC 20 - 25, Urine WBC 0 - 2, Ur Epithelial Cells 6 - 8, Urine Other Mucus - RAD Interpretation Radiology Orders: 02/21/17 12:44 CHEST PORTABLE [RAD] Stat - PA / AQUATIC INSTRUCTOR / Resident Statement SHANNAN has reviewed & agrees with the documentation as recorded. SHANNAN has examined the patient and agrees with the treatment plan. <Kate Ghotra - Last Filed: 02/21/17 15:08> Disposition/Present on Arrival - Present on Arrival Any Indicators Present on Arrival: No History of DVT/PE: No History of Uncontrolled Diabetes: No Urinary Catheter: No History of Decub. Ulcer: No History Surgical Site Infection Following: None - Disposition Have Diagnosis and Disposition been Completed?: Yes Disposition Time: 14:57 Patient Plan: Admission <Josh Antonio - Last Filed: 02/21/17 14:55> <Kate Ghotra - Last Filed: 02/21/17 15:08> - Disposition Diagnosis: Bipolar disorder Disposition: HOSPITALIZED Patient Problems: Current Active Problems Problem Status Onset Bipolar disorder Acute Condition: GUARDED
--- NOTE | 2017-02-21 15:04 | RAD ---
PROCEDURE: Left Thumb radiographs. HISTORY: pain COMPARISON: None. TECHNIQUE: AP radiograph of the left hand, as well as spot oblique and lateral images of thumb were obtained. FINDINGS: LEFT THUMB: Normal left thumb, without fracture or focal lesion. Remainder of the left hand (as seen on the AP view) grossly unremarkable. JOINTS: Normal. SOFT TISSUES: Normal. OTHER FINDINGS: None. IMPRESSION: Normal left thumb radiographs.
--- NOTE | 2017-02-21 15:05 | RAD ---
PROCEDURE: Right Hand Radiographs. HISTORY: hand pain COMPARISON: None. FINDINGS: BONES: Normal. No fracture. JOINTS: Normal. No osteoarthritic changes. SOFT TISSUES: Normal. OTHER FINDINGS: None. IMPRESSION: Normal right hand radiographs.
--- NOTE | 2017-02-21 15:18 | RAD ---
HISTORY: psych medical clearance COMPARISON: 12/08/2016 FINDINGS: LUNGS: No active pulmonary disease. PLEURA: No significant pleural effusion identified, no pneumothorax apparent. CARDIOVASCULAR: Normal. OSSEOUS STRUCTURES: No significant abnormalities. VISUALIZED UPPER ABDOMEN: Normal. OTHER FINDINGS: None. IMPRESSION: No active disease. No interval pathology noted
--- NOTE | 2017-02-21 21:25 | PCM.BM ---
<Monie Holman - Last Filed: 02/21/17 21:22> Treatment Plan Problems - Problems identified on initial assessmt hopeless/helpless Date Initiated: 02/21/17 Time Initiated: 20:00 Assessment reference: NA Status: Active Priority: 2 social isolation Date Initiated: 02/21/17 Time Initiated: 20:00 Assessment reference: NA Status: Active Priority: 1 altered sleep pattern Date Initiated: 02/21/17 Time Initiated: 20:00 Assessment reference: NA Status: Active non compliant with medication Date Initiated: 02/21/17 Time Initiated: 20:00 Assessment reference: NA Status: Active Treatment assets and liabiliti Patient Assests: adapts well, cooperative, ADL independent, negotiates basic needs Patient Liabilities: financial problems, poor support system, relationship conflicts - Milieu Protocol Maintain good personal hygiene: daily Encourage regular showers, daily Remind patient to perform daily oral care, daily Assist patient to perform ADL's Conduct patient checks and document Observation sheet: Q15 minutes Maintain personal safety: every shift Educate patient to report safety concerns to staff, every shift Monitor environment for contraband/sharps Medication safety: Monitor for expected outcome, potential side effects: every shift, Assess barriers to learning: every shift, Assess readiness for medication education: every shift Family Contact - Goals for Treatment Patient goals for treatment: need to be more stable and be independent Discharge/Continuing Care - Education Needs Education Needs: Patient Medication, Patient Diagnosis/Disease Process, Patient Coping Skills, Patient Anger Management skills, Patient Community resources, Patient Personal Hygiene/Grooming - Discharge Discharge Criteria: Tolerates medication w/o severe side effects, Free of Suicidal thoughts, Free of agitation, Normal sleep pattern <Jeannie Rader - Last Filed: 02/23/17 07:29> - Diagnosis (1) ADD (attention deficit disorder) Status: Acute Interventions: 02/23/17 07:33 med management (2) Learning disabilities Status: Acute Interventions: 02/23/17 07:31 psychoeducation social support (3) PTSD (post-traumatic stress disorder) Status: Acute Interventions: 02/23/17 07:30 Psychoeducation Psychopharmacology/adjustment of medications as needed/ monitoring possible side effects Evaluate pt on daily basis Compliance with medications and follow up appointments Suicide and homicide risk assessment and prevention, coping strategies, safety plan Reduction of symptoms Relaxation techniques and breathing exercises Improve functional status Family involvement As outpatient: cognitive behavioral therapy (4) Bipolar disorder Status: Acute Interventions: 02/23/17 07:30 Psychoeducation Psychopharmacology/adjustment of medications as needed/ monitoring possible side effects Monitor blood level of mood stabilizers Evaluate pt on daily basis Compliance with medications and follow up appointments Suicide and homicide risk assessment and prevention, coping strategies, safety plan Relapse prevention Reduction of symptoms Improve functional status Family involvement As outpatient: cognitive behavioral therapy <Rafi Manjarrez - Last Filed: 02/23/17 09:39> Treatment assets and liabiliti Patient Assests: cooperative, self-reliant, ADL independent, physically healthy Patient Liabilities: live alone, poor support system - Milieu Protocol Maintain good personal hygiene: daily Encourage regular showers, daily Remind patient to perform daily oral care, daily Assist patient to perform ADL's Maintain personal safety: daily Educate patient to report safety concerns to staff, daily Monitor environment for contraband/sharps Medication safety: Monitor for expected outcome, potential side effects: daily, Assess barriers to learning: daily, Assess readiness for medication education: daily Discharge/Continuing Care - Education Needs Education Needs: Patient Medication, Patient Diagnosis/Disease Process, Patient Coping Skills, Patient Anger Management skills, Patient Community resources, Patient Activities of Daily Living, Patient Pain <Lisbet Last - Last Filed: 02/23/17 15:45>
--- NOTE | 2017-02-21 23:02 | CARD ---
APPROVED REPORT EKG Measurement Heart [id number] <Conclusion> Normal sinus rhythm with sinus arrhythmia Normal ECG
[2017-02-22 08:10] LABS: CHOLESTEROL 138 mg/dL (130-200); GLUCOSE,FASTING 94 mg/dL (65-110)
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
[2017-02-23] MEDS: Lidocaine 5% Patch TD SCH (08:03)
--- NOTE | 2017-02-23 09:15 | PN ---
DATE: SUBJECTIVE: I saw her resting comfortably in psychiatric unit. She slept very well last night. She tells me she is having low back pain and wants something for it. She is currently on Risperdal, Sonata, Tylenol, Vistaril, Wellbutrin. I will add a Lidoderm patch. She has taken the medication and had better day yesterday, which is good. PHYSICAL EXAMINATION: VITAL SIGNS: She has 97.8 temperature, 69 pulse, 102/48 blood pressure, 18 respiratory rate, and 100% O2 sat on room air. HEENT: Head is atraumatic, normocephalic. HEART: Regular rate. LUNGS: Clear to auscultation. ABDOMEN: Soft, obese, nontender. EXTREMITIES: No edema. LABORATORY DATA: She has 9.1 white count, 10.1 hemoglobin. Last blood sugar was 94. Cholesterol was 138. ASSESSMENT AND PLAN: She is being seen by psychiatry. I added Lidoderm patch for her low back hoping this will help and take some distress off of her back. I will continue to follow her. She is here for depression; asthma; no symptoms; history of back pain, I put her on Lidoderm; obesity and hopefully she will do okay. Koffi Zhao DO
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
--- NOTE | 2017-02-24 08:47 | PCM.PYCHPN ---
Psychiatric Progress Note - Psychiatric Progress Note Patient seen today, length of contact: 25 min Patient Chief Complaint: better Problems Identified/Issues Discussed: I reviewed assessment and recent notes. I met with patient at bedside. Patient is calm, cooperative and oriented x3. Reports that she is feeling better and denies any new concerns. Affect is anxious but in control. Reports that she "slept amazing". Patient denies perceptual disturbances and her responses are relevant to questioning. Presently patient denies having any new discomfort or pain and has been tolerating medications on the unit Nursing notes indicate that patient has been bright, visible and social on the unit. Attending groups and she appears motivated for improvement. There were no behavioral issues over the weekend. Diagnostic Results: as per h/o BD as per h/o neurocognitive deficit as per h/o learning disability as per h/o ADHD r/o impulse control disorder Medication Change: No ( ) Medical Record Reviewed: Yes Mental Status Examination - Cognitive Function Orientation: Person, Place, Situation Attention: WNL Association: WNL - Mood Mood: Depressed (better) - Affect Affect: Other (anxious) - Speech Speech: Appropriate - Formal Thought Process Formal Thought Process: No Impairment - Suicidal Ideation Suicidal Ideation: No - Homicidal Ideation Homicidal Ideation: No Goal/Treatment Plan - Goal/Treatment Plan Need for Continued Stay: Remain at risks for inpatient hospitalization, Severe depression anxiety, Discharge may exacerbated symptoms, Severe functional impairment Progress Toward Problem(s) and Goals/Treatment Plan: * c/w current tx and plan * No new weekend labs * Vitals reviewed and noted below: Selected Entries 02/22/17 02/22/17 02/23/17 08:11 16:00 06:52 Temperature 97.8 F 97.8 F Pulse Rate 55 L 70 69 Respiratory 17 18 Rate Blood Pressure 114/46 L 120/52 L 102/48 L O2 Sat by Pulse 100 Oximetry 02/23/17 16:00 Temperature Pulse Rate 82 Respiratory Rate Blood Pressure 127/90 O2 Sat by Pulse Oximetry Estimated Date of D/C: 02/28/17
[2017-02-24] MEDS: Lidocaine 5% Patch TD SCH (09:37)
[2017-02-24] MEDS ORDERED: Alum-Mag Hydrox-Simethicone Susp (30 mL) PO PRN (12:16)
[2017-02-24] MEDS ORDERED: Magnesium Hydroxide Susp 30 ml UD PO PRN (12:16)
--- NOTE | 2017-02-24 15:41 | PN ---
DATE: SUBJECTIVE: I saw Donya in her room. She has had multiple complaints of neck pain, right hip pain. She wants x-rays. She wants medicines for the pain. She is also having some indigestion, wants her Protonix back that she used to get, but she feels better mentally. She is eating and participating. PHYSICAL EXAMINATION VITAL SIGNS: Temperature 98.4, pulse 67, blood pressure 99/53, respiratory rate 18, O2 100% on room air. HEENT: Head is atraumatic and normocephalic. Throat is moist. NECK: Supple. HEART: Regular rate. LUNGS: Clear to auscultation. ABDOMEN: Soft, morbidly obese. EXTREMITIES: No edema. She is having pain to the neck and the right hip. PLAN: We will get x-rays of the thoracic and right pelvis area, right hip area. I will renew Motrin for her and her Protonix for her. She is here for depression, obesity, asthma, back pain, right hip pain. Hopefully, she will continue to improve. She is on Lidoderm, Maalox, milk of magnesia, Motrin now, Protonix, Risperdal, Sonata, Tylenol, Ventolin, Vistaril and Wellbutrin. Last labs 02/21/2017, patient is doing pretty good. Continue as per psychiatry. She was seen by pulmonary for chronic obstructive lung disease and may have sleep apnea. I will do a PFT and Ventolin. Koffi Zhao DO
--- NOTE | 2017-02-24 16:37 | RAD ---
HISTORY: pain COMPARISON: No prior. FINDINGS: BONES: Bone alignment and mineralization are normal. Normal thoracic kyphosis. No acute fracture. DISC SPACES: There is mild multilevel degenerative disc disease in the mid and lower thoracic spine. SOFT TISSUES: Normal. OTHER FINDINGS: None. IMPRESSION: No acute fracture. Mild degenerative disc disease in the lower thoracic spine.
--- NOTE | 2017-02-24 16:38 | RAD ---
PROCEDURE: Right Hip Radiographs. HISTORY: pain COMPARISON: None. FINDINGS: BONES: The pelvic ring is intact. There is no acute displaced fracture or bone destruction. JOINTS: Normal. SOFT TISSUES: Normal. OTHER FINDINGS: None. IMPRESSION: No acute fracture or dislocation.
--- NOTE | 2017-02-24 21:38 | PN ---
DATE: 02/24/2017 PULMONARY PROGRESS NOTE REFERRING PHYSICIAN: Jeannie Rader MD SUBJECTIVE: The patient is sitting up in the common room. Night was unremarkable. Slept better. Decreased cough. No shortness of breath. No nausea, no vomiting, and no diarrhea. No leg pain or leg swelling. PHYSICAL EXAMINATION GENERAL: In no acute distress. VITAL SIGNS: Temperature is 98, heart rate is 80, respiratory rate is 20, blood pressure 133/80, and pulse ox 100% on room air. HEENT: Moist mucous membrane. Crowded airway. Mallampati score is IV. NECK: Supple. No JVD. LUNGS: Has a fair airflow with few rhonchi. HEART: S1 and S2. ABDOMEN: Soft, nontender, no organomegaly. EXTREMITIES: No edema. NEUROLOGIC: Awake and alert. Follows simple commands. MEDICATIONS: Reviewed and noted. She is on Lidoderm patch daily, Maalox p.r.n. basis, Motrin p.r.n. basis, Protonix 40 mg daily, Risperdal 0.5 mg a.m. and at bedtime, Sonata 5 mg at bedtime p.r.n., Tylenol p.r.n. basis, Ventolin HFA two puffs q. 4 hours p.r.n., Vistaril 25 mg three times a day p.r.n., and Wellbutrin 75 mg twice a day. LABORATORY DATA: Reviewed and no new lab is available since yesterday. She had a thoracic spine x-ray done, shows mild degenerative disk disease in the lower thoracic spine, otherwise unremarkable. IMPRESSION AND PLAN: Bipolar with major depression, episode of anxiety, history of chronic obstructive lung disease, hypertension, anemia, may have a sleep apnea syndrome. Pulmonary point of view, doing okay. Keep head 45 degree. Continue bronchodilators. Head elevated 45 degree. Careful with sedation. Upon discharge, outpatient PFT and attend sleep study. Thank you and we will follow with you. Talisha Costa MD
[2017-02-25] MEDS: Pantoprazole 40 mg EC Tab PO SCH (08:37)
--- NOTE | 2017-02-25 09:12 | PCM.PYCHPN ---
Psychiatric Progress Note - Psychiatric Progress Note Patient seen today, length of contact: 25 min Patient Chief Complaint: "very anxious" Problems Identified/Issues Discussed: I reviewed recent notes and met with patient at bedside. Patient remains calm, cooperative and oriented x3. Reports that she feels "so-so" and has been feeling "very anxious". Patient feels overwhelmed and reports intrusive thoughts related to her stressors. Also complains of dizziness x2 days. Affect is anxious but in control. She slept well again last night. Patient denies perceptual disturbances and her responses are relevant to questioning. Presently patient denies having any other new discomfort or pain. Nursing notes indicate that patient has been bright, visible and social on the unit. Attending groups and appears motivated for improvement. There were no behavioral issues over the weekend. Diagnostic Results: as per h/o BD as per h/o neurocognitive deficit as per h/o learning disability as per h/o ADHD r/o impulse control disorder Medication Change: No ( ) Medical Record Reviewed: Yes Mental Status Examination - Cognitive Function Orientation: Person, Place, Situation Attention: WNL Association: WNL - Mood Mood: Depressed (better), Anxious - Affect Affect: Other (anxious) - Speech Speech: Appropriate - Formal Thought Process Formal Thought Process: No Impairment - Suicidal Ideation Suicidal Ideation: No - Homicidal Ideation Homicidal Ideation: No Goal/Treatment Plan - Goal/Treatment Plan Need for Continued Stay: Remain at risks for inpatient hospitalization, Severe depression anxiety, Discharge may exacerbated symptoms, Severe functional impairment Progress Toward Problem(s) and Goals/Treatment Plan: * c/w current tx and plan * Appreciate f/u by Dr. Zhao on 02/24/17~getting xrays of thoracic, right pelvis area, 02/24/17 RIGHT HIP XRAY: no acute fracture or dislocation 02/24/17 THORACIC SPINE XRAY: no acute fracture. Mild degenerative disc disease in the lower thoracic spine * Appreciate f/u by Dr. Costa on 02/24/17~no new recommendations * No new weekend labs * Vitals reviewed and noted below: Selected Entries 02/24/17 02/24/17 07:12 16:30 Temperature 98.4 F Pulse Rate 57 L 80 Respiratory 18 Rate Blood Pressure 99/53 L 133/80 Estimated Date of D/C: 02/28/17
[2017-02-25] MEDS: Lidocaine 5% Patch TD SCH (09:51)
--- NOTE | 2017-02-25 14:52 | PN ---
DATE: SUBJECTIVE: I saw her in her room walking around. She is fairly comfortable. She did have her x-rays yesterday. If I did not bring up her x-rays, she would not be telling me about the pain, so when I brought it up, she mentioned the pain to me. Otherwise, she is fairly comfortable. She is participating taking her medications. PHYSICAL EXAMINATION: VITAL SIGNS: Temperature 97.5, pulse 71, blood pressure 98/55, respiratory rate 19, and 100% O2 sat on room air. HEENT: Head is atraumatic and normocephalic. HEART: Regular rate. LUNGS: Clear to auscultation. ABDOMEN: Morbidly obese, soft, nontender. Positive bowel sounds. EXTREMITIES: No edema. MEDICATIONS: She is currently on Lidoderm patch, Maalox, milk of magnesia, Motrin, Protonix, Risperdal, Sonata, Tylenol, Ventolin, Vistaril, and Wellbutrin. LABORATORY DATA: The labs on the 02/21/2017 were good. Cholesterol was good at 138, last blood sugar was 94. PLAN: She had some x-rays done, x-ray of the hip showed no acute fracture or dislocation and she had an x-ray of the thoracic spine, which showed mild degenerative disc disease on lower thoracic spine where she has a little bit of arthritis. She is currently on Lidoderm and Motrin. She is also being seen by pulmonary who feels that she might have sleep apnea syndrome, keeping the head of bed up at 45 degrees as best they can. We will continue the aggressive psychiatric care. She also has depression and asthma. Koffi Zhao DO
[2017-02-26] MEDS: Albuterol HFA 90 mcg/actuation (8 g) IH PRN ×2 (00:02→23:57)
[2017-02-26] MEDS: Pantoprazole 40 mg EC Tab PO SCH (06:44)
[2017-02-26 07:53] VITALS: RESP 20
[2017-02-26] MEDS ORDERED: Lidocaine 5% Patch TD SCH (08:39)
[2017-02-26] MEDS: Lidocaine 5% Patch TD SCH (09:07)
--- NOTE | 2017-02-26 11:51 | PN ---
DATE: SUBJECTIVE: She is walking around the room, telling me she is feeling well, sleeping better. Overall, mentally doing great, but she is still having the back pain and neck pain. I discussed the x-rays with mild arthritis. She understands she wants to try two patches, one on the hip, one on the neck, which has helped the neck. We tried the Lidoderm patch. She takes Maalox, milk of magnesia, Motrin, Protonix, Risperdal, Sonata, Tylenol, Ventolin, Vistaril, and Wellbutrin. PHYSICAL EXAMINATION: VITAL SIGNS: Are 97.9 temperature, 82 pulse, 104/61 blood pressure, 20 respiratory rate, 92% O2 saturation on room air. HEENT: Head is atraumatic, normocephalic. HEART: Regular rate. LUNGS: Clear to auscultation. ABDOMEN: Soft, obese. EXTREMITIES: No edema. Back pain and hip pain is mild today if any. LABORATORY DATA: Last labs on 02/21/2017. PLAN: She did well as per psychiatry. She feels she is improving and she is here for depression, asthma, history of back pain, right hip pain. We will watch her closely. Increase the Lidoderm patch to two. Koffi Zhao DO
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
[2017-02-27] MEDS: Pantoprazole 40 mg EC Tab PO SCH (06:54)
[2017-02-27 11:49] VITALS: BP 123/91; PULSE 58; TEMP 98.6
--- NOTE | 2017-02-27 15:19 | PN ---
DATE: SUBJECTIVE: Eating her breakfast. She is in good spirits. She is very happy. No complaints. She also tells me she is leaving today. She is very happy about that. She is on Lidoderm, which helps her, Maalox, milk of magnesia, Motrin, Protonix, Sonata, Tylenol, Ventolin, Vistaril, and Wellbutrin. She is eating her breakfast well, good spirits. No complaints. PHYSICAL EXAMINATION VITAL SIGNS: She has 97.9 temperature, 82 pulse, 104/61 blood pressure, 20 respiratory rate, and 100% O2 sat on room air. HEENT: Head is normocephalic and atraumatic. HEART: Regular rate. LUNGS: Clear to auscultation. ABDOMEN: Soft, morbidly obese, and nontender. EXTREMITIES: No edema. She has hip pain and back pain, presently right now no complaints. She has got the patches on it, so it helps her. Last labs on , she did very well. PLAN: She tells me she is leaving today and I said her to follow up with her primary care doctor on the outpatient and a psychiatrist. She takes her medications, I believe she will do very well. I discussed that with her and hopefully she will continue to improve and I understand she might discharged today versus tomorrow. Koffi Zhao DO
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
== END 2017-02-27 16:48 | disposition home or self-care (01) | DRG 431 ==
LOC: ED 12:12 → ERH 13:51 → PSYC 15:00
PROVIDERS: ADMIT Psychiatry & Neurology Psychiatry; ATTEND Psychiatry & Neurology Psychiatry
PROC: GZ3ZZZZ Medication Management (ICD-10-PCS; principal; 2017-02-21)
DX: F98.8 Other specified behavioral and emotional disorders with onset usually occurring in childhood and adolescence (principal); I10 Essential (primary) hypertension; F31.9 Bipolar disorder, unspecified; F43.10 Post-traumatic stress disorder, unspecified; F81.9 Developmental disorder of scholastic skills, unspecified; J44.9 Chronic obstructive pulmonary disease, unspecified; E28.2 Polycystic ovarian syndrome; F17.210 Nicotine dependence, cigarettes, uncomplicated; F12.90 Cannabis use, unspecified, uncomplicated; M54.5 Low back pain; M25.551 Pain in right hip; M51.34 Other intervertebral disc degeneration, thoracic region; G47.00 Insomnia, unspecified; E66.9 Obesity, unspecified; K29.70 Gastritis, unspecified, without bleeding; D64.9 Anemia, unspecified

== ENCOUNTER 2017-03-14 12:23 | Emergency (ER) | payer MEDICAID, OTHER ==
[2017-03-14 12:23] VITALS: BMI 43.6
[2017-03-14 12:51] VITALS: TEMP 98.2
--- NOTE | 2017-03-14 13:48 | ED PDOC ---
Arrival/HPI - General Historian: Patient - History of Present Illness Time/Duration: 1-3 hours, 24 hours Symptom Course: Worsening Quality: Stabbing Severity Level: Severe Context: Walking <Mary Decker - Last Filed: 03/14/17 14:54> <Rc Vega - Last Filed: 03/14/17 15:44> - General Chief Complaint: Lower Extremity Problem/Injury Time Seen by Provider: 03/14/17 12:28 - History of Present Illness Narrative History of Present Illness (Text): 03/14/17 13:49 21F w/PMH sig for bipolar d/o, depression, ADHD, oppositional defiant d/o, asthma, arthritis, morbid obesity, sciatica, gastritis, and hx of spraining her ankle evaluated for L ankle pain x 1 day. Pt reports rolling her left [place], pt was able to limp home. This AM she woke up with excruciating pain, had to call EMS, was BIBA for severe L ankle pain. Pain is constant since incident, radiates up lateral aspect of her leg, sharp. Pt denies taking any medications for it, denies trauma to other parts of her body, no further complaints. PMH: bipolar d/o, depression, ADHD, oppositional defiant d/o, asthma, arthritis , morbid obesity, sciatica, gastritis, and hx of spraining ankle PSH: Denies All: NKDA SH: Admits to Etoh use, average #3 drinks /mo; admits to tobacco use, average # 2 cigarettes/day; denies illicit drug use PMD: [place] (Mary Decker) Modifying Factors (Text): 03/14/17 13:52 none (Mary Decker) Associated Symptoms (Text): 03/14/17 13:52 none (Mary Decker) Past Medical History - Provider Review Nursing Documentation Reviewed: Yes - Past History Past History: No Previous - Infectious Disease Hx of Infectious Diseases: None - Tetanus Immunization Tetanus Immunization: Unknown - Reproductive Menopause: No - Past Medical History Past Medical History: No Previous - Cardiac Hx Cardiac Disorders: No Hx Hypertension: No - Pulmonary Hx Asthma: Yes - Neurological Hx Neurological Disorder: No - HEENT Hx HEENT Disorder: No - Renal Hx Renal Disorder: No - Endocrine/Metabolic Hx Hyperthyroidism: Yes - Hematological/Oncological Hx Anemia: Yes - Integumentary Hx Dermatological Disorder: No - Musculoskeletal/Rheumatological Hx Arthritis: Yes - Gastrointestinal Hx Gastritis: Yes - Genitourinary/Gynecological Other/Comment: POLYCYSTIC OVARY - Psychiatric Hx Depression: Yes Hx Substance Use: No - Past Surgical History Past Surgical History: No Previous - Anesthesia Hx Anesthesia: No Hx Anesthesia Reactions: No Hx Malignant Hyperthermia: No - Suicidal Assessment Feels Threatened In Home Enviroment: No <Mary Decker - Last Filed: 03/14/17 14:54> Family/Social History - Physician Review Nursing Documentation Reviewed: Yes Family/Social History: No Known Family HX Smoking Status: Light Smoker < 10 Cigarettes Daily Hx Alcohol Use: No Hx Substance Use: No Hx Substance Use Treatment: No <Mary Decker - Last Filed: 03/14/17 14:54> Allergies/Home Meds <Mary Decker - Last Filed: 03/14/17 14:54> <Rc Vega - Last Filed: 03/14/17 15:44> Allergies/Adverse Reactions: Allergies No Known Allergies Allergy (Verified 02/22/17 13:22) Review of Systems - Physician Review All systems were reviewed & negative as marked: Yes - Review of Systems Constitutional: Normal. absent: Fatigue Eyes: Normal. absent: Vision Changes ENT: Normal. absent: Sore Throat Respiratory: Normal. absent: SOB Cardiovascular: Normal. absent: Chest Pain Gastrointestinal: Normal. absent: Abdominal Pain, Nausea, Vomiting Musculoskeletal: Normal. absent: Back Pain Skin: Normal. absent: Rash Neurological: Normal. absent: Headache, Dizziness <Mary Decker - Last Filed: 03/14/17 14:54> Physical Exam Vital Signs Reviewed: Yes Temperature: Afebrile Blood Pressure: Normal Pulse: Regular Respiratory Rate: Normal Appearance: Positive for: Non-Toxic Pain Distress: Mild Mental Status: Positive for: Alert and Oriented X 3 - Systems Exam Head: Present: Atraumatic, Normocephalic Extroacular Muscles: Present: EOMI Conjunctiva: Present: Normal Mouth: Present: Moist Mucous Membranes Nose (External): Present: Atraumatic Neck: Present: Normal Range of Motion Respiratory/Chest: Present: Clear to Auscultation, Good Air Exchange. No: Respiratory Distress, Accessory Muscle Use Cardiovascular: Present: Regular Rate and Rhythm, Normal S1, S2. No: Murmurs Abdomen: Present: Tenderness, Normal Bowel Sounds. No: Distention (obese), Peritoneal Signs Upper Extremity: Present: Normal Inspection. No: Cyanosis, Edema Lower Extremity: Present: Tenderness (lateral aspect of left ankle/foot), Swelling (lateral aspect of left ankle). No: Normal ROM (decreased 2/2 pain) Neurological: Present: GCS=15, CN II-XII Intact, Speech Normal Skin: Present: Warm, Dry, Normal Color. No: Rashes Psychiatric: Present: Alert, Oriented x 3, Normal Insight, Normal Concentration <Mary Decker - Last Filed: 03/14/17 14:54> Vital Signs Temp Pulse Resp BP Pulse Ox 03/14/17 13:48 79 18 121/79 99 03/14/17 12:47 98.2 F 88 16 122/85 99 Medical Decision Making <Mray Decker - Last Filed: 03/14/17 14:54> <Rc Vega - Last Filed: 03/14/17 15:44> ED Course and Treatment: 03/14/17 13:15 Pt seen/examined, will order x-ray of L ankle and NSAID for pain. DW attending. (Mary Decker) 03/14/17 In agreement with resident note, which includes further HPI details. Patient was seen and evaluated with resident, came up with plan and treatment together. Patient twisted her ankle prior to arrival. On exam she has soft tissue swelling and focal tenderness to left lateral malleolus. There is no calf, knee , or hip pain noted. Patient is neurovascularly intact. Due to significant swelling she will be place in orthopedic glass splint. She will be given crutches and has been instructed to follow up with orthopedics. Xrays of ankle and foot negative for fracture. Limitations of imaging studies reviewed with patient, stressed need for close follow-up. (Rc Vega) - RAD Interpretation Radiology Orders: 03/14/17 13:20 FOOT LEFT 3 VIEWS ROUTINE [RAD] Stat 03/14/17 14:03 ANKLE LEFT 3 VIEWS ROUTINE [RAD] Stat - Medication Orders Current Medication Orders: Discontinued Medications Ibuprofen (Motrin Tab) 800 mg PO STAT STA Stop: 03/14/17 13:21 <Mary Decker - Last Filed: 03/14/17 14:54> - PA / RUG CUTTER HELPER / Resident Statement MD/DO has reviewed & agrees with the documentation as recorded. MD/DO has examined the patient and agrees with the treatment plan. - Scribe Statement The provider has reviewed the documentation as recorded by the Scribe <Rc Vega - Last Filed: 03/14/17 15:44> - Scribe Statement Karla South Provider Scribe Attestation: All medical record entries made by the Scribe were at my direction and personally dictated by me. I have reviewed the chart and agree that the record accurately reflects my personal performance of the history, physical exam, medical decision making, and the department course for this patient. I have also personally directed, reviewed, and agree with the discharge instructions and disposition. (Rc Vega) Disposition/Present on Arrival - Present on Arrival Any Indicators Present on Arrival: No History of DVT/PE: No History of Uncontrolled Diabetes: No Urinary Catheter: No History of Decub. Ulcer: No History Surgical Site Infection Following: None - Disposition Have Diagnosis and Disposition been Completed?: Yes Disposition Time: 14:55 Patient Plan: Discharge <Mary Decker - Last Filed: 03/14/17 14:54> <cR Vega - Last Filed: 03/14/17 15:44> - Disposition Diagnosis: Left ankle sprain Disposition: HOME/ ROUTINE Patient Problems: Current Active Problems Problem Status Onset Left ankle sprain Acute Condition: STABLE Discharge Instructions (ExitCare): Ankle Sprain (ED), Crutch Instructions (ED) , Ankle Stirrup Splint (ED), Ankle Exercises (GEN) Prescriptions: Naproxen [Naprosyn] 250 mg PO Q4H PRN #28 tablet PRN Reason: Pain, Moderate (4-7) Referrals: [facility] [Outside] - Follow up with primary Forms: [employer] (Bengali), WORK NOTE
[2017-03-14 13:49] VITALS: RESP 18
--- NOTE | 2017-03-14 14:47 | RAD ---
PROCEDURE: Left Foot Radiographs. HISTORY: trauma COMPARISON: None. FINDINGS: BONES: Normal. No fracture. JOINTS: Normal. SOFT TISSUES: Normal. OTHER FINDINGS: None. IMPRESSION: Normal left foot radiographs.
--- NOTE | 2017-03-14 14:54 | RAD ---
PROCEDURE: Left Ankle Radiographs. HISTORY: trauma COMPARISON: None FINDINGS: BONES: Normal. No fracture. JOINTS: Normal. No osteoarthritis. Ankle mortise maintained. Talar dome intact SOFT TISSUES: Normal. OTHER FINDINGS: None. IMPRESSION: No acute findings
[2017-03-14 15:49] VITALS: BP 118/74; PULSE 74; O2SAT 100
== END 2017-03-14 16:00 | disposition home or self-care (01) ==
LOC: ED 12:23
DX: S93.402A Sprain of unspecified ligament of left ankle, initial encounter (principal); X50.0XXA Overexertion from strenuous movement or load, initial encounter; Y93.01 Activity, walking, marching and hiking; Y92.522 Railway station as the place of occurrence of the external cause